=== PATIENT | male | born 1925 | race Caucasian/White ===

== ENCOUNTER 2016-06-09 15:33 | Emergency (ER) | payer OTHER ==
[~2016-06-09] VITALS: Ht 160 cm; Wt 56.7 kg
--- NOTE | 2016-06-09 16:53 | ED GI/GU/ABDOMINAL COMPLAINT ---
History of Present Illness General Chief Complaint: Abdominal Pain/Flank Pain Stated Complaint: ABD PAIN Source: patient, family, old records Exam Limitations: no limitations Vital Signs & Intake/Output Vital Signs & Intake/Output Vital Signs Date Time Temp Pulse Resp B/P Pulse O2 O2 Flow FiO2 Ox Delivery Rate 06/09 1803 68 16 134/64 96 Room Air 06/09 1723 97 Room Air 06/09 1544 97.4 95 18 147/75 97 Room Air Allergies Coded Allergies: No Known Allergies (06/09/16) Reconcile Medications Amlodipine Besylate (Norvasc) 10 MG TABLET 1 TAB PO DAILY BP (Reported) Aspirin (Ecotrin*) 81 MG TABLET.DR 1 TAB PO DAILY HEART/BLOOD (Reported) Atorvastatin Calcium 40 MG TABLET 1 TAB PO DAILY CHOLESTEROL (Reported) Lisinopril 2.5 MG TABLET 1 TAB PO DAILY BP (Reported) Triage Note: 89 Y/O MALE SENT BY DR COVINGTON FOR EVAL OF R FLANK PAIN X 1 WEEK; R/O OBSTRUCTION PER PT. PT STATES PAIN OCCASIONALLY RADIATES INTO THE ABDOMEN. REPORTS INTERMITTENT NAUSEA. DENIES VOMITING. DENIES URINARY SYMPTOMS. AFEBRILE. Triage Nurses Notes Reviewed? yes HPI: Patient is an 89-year-old male sent into the emergency department by his primary care doctor, Dr. Covington, for further evaluation of right-sided abdominal pain. Patient reports that the pain is a sharp pain is minimal at rest, worsens with movement. Pain is been severe at times. Patient reports the pain has gradually worsened over the past 1 week. Patient has not had a bowel movement for one week. Patient has been eating prunes and used 2 enemas without improvement. Patient was seen by his primary care doctor prior to arrival and sent to the emergency department to rule out obstruction. Patient reports he is passing flatus. Denies fevers, chills, nausea, vomiting. (MARYLU MEDEIROS,CHAMP) Past History Travel History Traveled to [place] past 21 day No Medical History Any Pertinent Medical History? see below for history Neurological: NONE EENT: NONE Cardiovascular: CAD, hypertension, hyperlipidemia Respiratory: NONE Gastrointestinal: NONE Hepatic: NONE Renal: NONE Musculoskeletal: NONE Psychiatric: NONE Endocrine: NONE Blood Disorders: NONE Cancer(s): NONE REPAIR MILLER/Reproductive: NONE Pneumonia Vaccine: 02/05/08 Surgical History Surgical History: CABG x 5, appendectomy Psychosocial History Who do you live with Spouse What is your primary language South African Tobacco Use: Never used Family History Hx Contributory? No (CHAMP MCKNIGHT) Review of Systems Review of Systems Constitutional: Denies: chills, fever. EENTM: Reports: no symptoms. Respiratory: Denies: cough, short of breath. Cardiovascular: Denies: chest pain. GI: Reports: see HPI. Genitourinary: Reports: no symptoms. Musculoskeletal: Reports: no symptoms. Skin: Reports: no symptoms. Neurological/Psychological: Reports: no symptoms. Hematologic/Endocrine: Reports: no symptoms. Immunologic/Allergic: Reports: no symptoms. (CHAMP MCKNIGHT) Physical Exam Physical Exam General Appearance: well developed/nourished, alert, awake Head: atraumatic, normal appearance Eyes: Bilateral: normal appearance, PERRL, EOMI. Ears, Nose, Throat, Mouth: hearing grossly normal, moist mucous membrane Neck: normal inspection, supple, full range of motion Respiratory: normal breath sounds, chest non-tender, no respiratory distress, lungs clear Cardiovascular: regular rate/rhythm, systolic murmur Gastrointestinal: normal bowel sounds, soft, right upper quadrant and right mid abdominal tenderness Back: normal inspection, normal range of motion Extremities: normal range of motion Neurologic/Psych: no motor/sensory deficits, awake, alert, oriented x 3, normal mood/affect Skin: intact, warm/dry Core Measures ACS in differential dx? No Severe Sepsis Present: No Septic Shock Present: No (CHAMP MCKNIGHT) Progress Differential Diagnosis: AAA, biliary colic, bowel obstruction, cholecystitis, diverticulitis, gastritis, hepatitis, hernia, ischemic bowel, inflamm bowel dis, pancreatitis, PUD/GERD, perforated viscous, pyelonephritis, SBO, ureterolithiasis, UTI/pyelo Plan of Care: Orders Procedure Date/time Status LACTIC ACID 06/09 2001 Active LACTIC ACID 06/09 1702 Complete TROPONIN LEVEL 06/09 1554 Complete LIPASE 06/09 1554 Complete COMPREHENSIVE METABOLIC PANEL 06/09 1554 Complete CBC WITHOUT DIFFERENTIAL 06/09 1554 Complete AMYLASE 06/09 1554 Complete EKG 06/09 1554 Active URINALYSIS 06/09 1546 Complete Laboratory Tests 06/09/16 1710: Lactic Acid 1.0 06/09/16 1710: Anion Gap 12, Estimated GFR > 60, BUN/Creatinine Ratio 20.0, Glucose 106 H, Calcium 9.3, Total Bilirubin 0.8, AST 19, ALT 32, Alkaline Phosphatase 121, Troponin I < 0.01, Total Protein 6.8, Albumin 4.2, Globulin 2.6, Albumin/ Globulin Ratio 1.6, Amylase 53, Lipase 96, CBC w Diff NO MAN DIFF REQ, RBC 5.28, MCV 90.4, MCH 30.4, RDW 13.3, MPV 7.7, Gran % 75.7 H, Lymphocytes % 15.5 L, Monocytes % 7.8, Eosinophils % 0.7, Basophils % 0.3, Absolute Granulocytes 7.6 H, Absolute Lymphocytes 1.6, Absolute Monocytes 0.8 H, Absolute Eosinophils 0.1 , Absolute Basophils 0, PUBS MCHC 33.6 06/09/16 1554: Urine Color YEL, Urine Clarity CLEAR, Urine pH 6.0, Ur Specific Lewis >= 1.030 , Urine Protein 100 H, Urine Ketones NEG, Urine Nitrite NEG, Urine Bilirubin NEG, Urine Urobilinogen 1.0, Ur Leukocyte Esterase NEG, Ur Microscopic SEDIMENT EXAMINED, Urine RBC FEW H, Urine WBC 1-3 H, Ur Epithelial Cells RARE, Hyaline Casts FEW H, Urine Mucus MOD H, Urine Hemoglobin TRACE-LYSED H, Urine Glucose NEG 06/09/2016 6:38:31 PM: Patient reevaluated multiple times. Results of CT scan, labs, ultrasound discussed with the patient and his son. No peritoneal signs on exam. Patient nontoxic appearing. Patient appears stable for discharge, will have patient take Colace and magnesium citrate and have him follow-up with his primary care doctor. Patient to return to the emergency department if worsening. Discussed with and seen by Dr. Ashford. (CHAMP MCKNIGHT) Diagnostic Imaging: Viewed by Me: CT Scan. Discussed w/RAD: CT Scan. Radiology Impression: PATIENT: RODRIGO SIEGEL PRESENT AGE : 89 PATIENT ACCOUNT NO: [id number] : [birth year] LOCATION: [facility] ORDERING PHYSICIAN: BARNEY ASHFORD DO SERVICE DATE: 06/09/162664 EXAM TYPE: CAT - CT ABD & PELVIS W/O IV CONTRAS EXAMINATION: CT ABDOMEN AND PELVIS WITHOUT CONTRAST CLINICAL INFORMATION: No bowel movement for 7 days. Concern for bowel obstruction. COMPARISON: None TECHNIQUE: Multidetector volumetric imaging was performed from the superior aspect of the liver through the pubic symphysis. Sagittal and coronal reformatted images were obtained on the technologist's workstation. DLP: 284.48 mGy-cm FINDINGS: LUNG BASES: Status post median sternotomy. Lungs are clear. No pleural effusion. There are vascular wall calcifications of the aorta. LIVER, GALLBLADDER, AND BILIARY TREE: 2.3 cm hepatic cyst dome right lobe of liver. Multiple small calcified gallstones layering dependently in the neck of the gallbladder. The extrahepatic CBD is mildly dilated to 8 mm. There is no calcified stone within the bile duct. PANCREAS: Unremarkable. SPLEEN: Unremarkable. ADRENAL GLANDS: Unremarkable. KIDNEYS AND URETERS: The kidneys are normal in size, shape, and attenuation. No hydronephrosis, hydroureter, or calculi are seen. No perinephric stranding. BLADDER: Unremarkable. GASTROINTESTINAL TRACT: Marked diverticulosis of the sigmoid colon. No diverticulitis. No bowel wall thickening or edema. Moderate volume of stool in the colon. No bowel obstruction. The appendix is not seen. There is no inflammation of the mesentery. The small bowel loops are normal. ABDOMINAL WALL: No significant hernia is appreciated. LYMPH NODES: Normal. VASCULAR: Atherosclerotic vascular wall calcifications of the aorta and iliac vessels and major branch vessels of aorta. No aneurysm of the aorta. PELVIC VISCERA: Prostate is prominent measuring 4 cm transverse. OSSEOUS STRUCTURES: Multilevel degenerative spondylosis of the spine with disc height narrowing, endplate spurs and facet joint arthrosis. IMPRESSION: 1. No acute abnormality in the CT scan abdomen and pelvis. No bowel obstruction. Diverticulosis of the colon. No acute change of the bowel. 2. Cholelithiasis with mild prominence of the extrahepatic CBD without stones in the duct. DICTATED BY: GROVER ULLOA MD DATE/TIME DICTATED:06/09/161645 CARDIO TECH:LUISA DATE/TIME TRANSCRIBED:06/09/161645 CONFIDENTIAL, DO NOT COPY WITHOUT APPROPRIATE AUTHORIZATION. <Electronically signed in Other Vendor System> SIGNED BY: GROVER ULLOA MD 06/09/16 5503, PATIENT: RODRIGO SIEGEL PRESENT AGE: 89 PATIENT ACCOUNT NO: [id number] : [birth year] LOCATION: [facility] ORDERING PHYSICIAN: CHAMP MEDEIROS SERVICE DATE: 06/09/16 EXAM TYPE: US - US-LIMITED ABDOMEN EXAMINATION: US ABDOMEN LIMITED CLINICAL INFORMATION: Right-sided abdominal pain and tenderness.. COMPARISON: 06/09/2016 TECHNIQUE: Real-time imaging of the right upper quadrant abdominal viscera. FINDINGS: PANCREAS: Poorly visualized secondary to bowel gas. LIVER: There is a 2.1 cm cyst in the right lobe of the liver. The liver demonstrates normal size, contour and echogenicity. No intrahepatic biliary duct dilatation. GALLBLADDER: The evaluation of the gallbladder is limited, with limited visualization. The gallstones seen on the prior CT are not visualized on this ultrasound. No evidence of gallbladder wall thickening. No pericholecystic fluid. COMMON BILE DUCT: Normal in caliber measuring 0.4 cm in diameter. RIGHT KIDNEY: Normal. No hydronephrosis. No renal calculi or focal parenchymal lesions. The kidney measures 8.4 cm in maximum dimension. FREE FLUID: None. IMPRESSION: Limited study, with limited visualization of the gallbladder. The gallstones seen on the recent prior CT are not visualized on this study. No evidence of wall thickening or adjacent inflammatory change. DICTATED BY: NAVEED CONTRERAS MD DATE/TIME DICTATED:06/09/161804 CARDIO TECH:LUISA DATE/TIME TRANSCRIBED:1804 CONFIDENTIAL, DO NOT COPY WITHOUT APPROPRIATE AUTHORIZATION. < Electronically signed in Other Vendor System> SIGNED BY: NAVEED CONTRERAS MD 06/09/161814 Initial ED EKG: sinus rhythm left bundle branch block Prior EKG: changed (MARYLU MEDEIROS,CHAMP) Departure Departure Time of Disposition: 1833 Disposition: HOME OR SELF CARE Condition: Stable Clinical Impression Primary Impression: Constipation Qualifiers: Constipation type: unspecified constipation type Qualified Code: K59.00 - Constipation, unspecified Secondary Impressions: Right sided abdominal pain Referrals: NADYA MERINO,RODRIGO Mcleod (PCP/Family) Additional Instructions: Take colace as directed. Take Magnesium Citrate, 1/2 bottle every 12 hours as needed for constipation, may use up to 3 days in a row. Do not take additional doses of magnesium citrate if you have more than 2 bowel movements in a 24 hour period. Follow up with your primary doctor next week for further evaluation. Return to the ER if fevers, vomiting or worsening of symptoms. Departure Forms: Customer Survey General Discharge Information (MARYLU MEDEIROS,CHAMP) PA/PRINT TRAFFIC MANAGER Co-Sign Statement Statement: ED Attending supervision documentation- [x] I saw and evaluated the patient. I have also reviewed all the pertinent lab results and diagnostic results. I agree with the findings and the plan of care as documented in the PA's/PRINT TRAFFIC MANAGER's documentation. [] I have reviewed the ED Record and agree with the PA's/PRINT TRAFFIC MANAGER's documentation. [] Additions or exceptions (if any) to the PAs/PRINT TRAFFIC MANAGER's note and plan are summarized below: [] (BARNEY ASHFORD DO)
--- NOTE | 2016-06-09 17:11 | CT SCAN REPORT ---
EXAMINATION: CT ABDOMEN AND PELVIS WITHOUT CONTRAST CLINICAL INFORMATION: No bowel movement for 7 days. Concern for bowel obstruction. COMPARISON: None TECHNIQUE: Multidetector volumetric imaging was performed from the superior aspect of the liver through the pubic symphysis. Sagittal and coronal reformatted images were obtained on the technologist's workstation. DLP: 284.48 mGy-cm FINDINGS: LUNG BASES: Status post median sternotomy. Lungs are clear. No pleural effusion. There are vascular wall calcifications of the aorta. LIVER, GALLBLADDER, AND BILIARY TREE: 2.3 cm hepatic cyst dome right lobe of liver. Multiple small calcified gallstones layering dependently in the neck of the gallbladder. The extrahepatic CBD is mildly dilated to 8 mm. There is no calcified stone within the bile duct. PANCREAS: Unremarkable. SPLEEN: Unremarkable. ADRENAL GLANDS: Unremarkable. KIDNEYS AND URETERS: The kidneys are normal in size, shape, and attenuation. No hydronephrosis, hydroureter, or calculi are seen. No perinephric stranding. BLADDER: Unremarkable. GASTROINTESTINAL TRACT: Marked diverticulosis of the sigmoid colon. No diverticulitis. No bowel wall thickening or edema. Moderate volume of stool in the colon. No bowel obstruction. The appendix is not seen. There is no inflammation of the mesentery. The small bowel loops are normal. ABDOMINAL WALL: No significant hernia is appreciated. LYMPH NODES: Normal. VASCULAR: Atherosclerotic vascular wall calcifications of the aorta and iliac vessels and major branch vessels of aorta. No aneurysm of the aorta. PELVIC VISCERA: Prostate is prominent measuring 4 cm transverse. OSSEOUS STRUCTURES: Multilevel degenerative spondylosis of the spine with disc height narrowing, endplate spurs and facet joint arthrosis. IMPRESSION: 1. No acute abnormality in the CT scan abdomen and pelvis. No bowel obstruction. Diverticulosis of the colon. No acute change of the bowel. 2. Cholelithiasis with mild prominence of the extrahepatic CBD without stones in the duct.
[2016-06-09] MEDS ORDERED: LISINOPRIL2.5 M1 PO (17:21)
[2016-06-09] MEDS ORDERED: ASPIRIN EC81 M1 PO (17:21)
[2016-06-09 17:26] LABS: ABSOLUTE BASOPHIL COUNT 0 /CUMM (0.0-0.2); ABSOLUTE EOSINOPHIL COUNT 0.1 /CUMM (0.0-0.7); ABSOLUTE GRANULOCYTE CT 7.6 /CUMM (1.4-6.5); ABSOLUTE LYMPH COUNT 1.6 /CUMM (1.2-3.4); ABSOLUTE MONOCYTE COUNT 0.8 /CUMM (0.10-0.60); BASOPHIL % 0.3 % (0.0-2.0); EOSINOPHIL % 0.7 % (0-5); GRANULOCYTE % 75.7 % (42.2-75.2); HEMATOCRIT 47.8 % (42-52); MEAN CORPUSCULAR HGB 30.4 PG (27.0-31.0); MEAN CORPUSCULAR HGB CONC 33.6 G/DL (33.0-37.0); MEAN CORPUSCULAR VOLUME 90.4 FL (80.0-94.0); MEAN PLATELET VOLUME 7.7 FL (7.4-10.4); PLATELET COUNT 175 /CUMM (130-400); RBC DISTRIBUTION WIDTH 13.3 % (11.5-14.5); RED BLOOD CELL CT 5.28 /CUMM (4.70-6.10); WHITE BLOOD CELL COUNT 10.1 /CUMM (4.8-10.8)
[2016-06-09] MEDS ORDERED: NORVASC10 M1 PO (17:41)
[2016-06-09] MEDS ORDERED: ATORVASTATIN CA40 M1 PO (17:41)
[2016-06-09 18:03] VITALS: BP 134/64
--- NOTE | 2016-06-09 18:15 | ULTRASOUND REPORT ---
EXAMINATION: US ABDOMEN LIMITED CLINICAL INFORMATION: Right-sided abdominal pain and tenderness.. COMPARISON: 06/09/2016 TECHNIQUE: Real-time imaging of the right upper quadrant abdominal viscera. FINDINGS: PANCREAS: Poorly visualized secondary to bowel gas. LIVER: There is a 2.1 cm cyst in the right lobe of the liver. The liver demonstrates normal size, contour and echogenicity. No intrahepatic biliary duct dilatation. GALLBLADDER: The evaluation of the gallbladder is limited, with limited visualization. The gallstones seen on the prior CT are not visualized on this ultrasound. No evidence of gallbladder wall thickening. No pericholecystic fluid. COMMON BILE DUCT: Normal in caliber measuring 0.4 cm in diameter. RIGHT KIDNEY: Normal. No hydronephrosis. No renal calculi or focal parenchymal lesions. The kidney measures 8.4 cm in maximum dimension. FREE FLUID: None. IMPRESSION: Limited study, with limited visualization of the gallbladder. The gallstones seen on the recent prior CT are not visualized on this study. No evidence of wall thickening or adjacent inflammatory change.
== END 2016-06-09 18:45 ==
LOC: ERH 15:33
PROVIDERS: Emergency Medicine
DX: K59.00 Constipation, unspecified (principal)
CPT/HCPCS: 74176; 81001; 93005; 93010

== ENCOUNTER 2017-07-22 20:02 | Inpatient (IN) | payer OTHER ==
[~2017-07-22] VITALS: Ht 160 cm; Wt 67.8 kg
[~2017-07-22 20:02] MED LIST: ASPIRIN EC81 M1 PO; ATORVASTATIN CA40 M1 PO; LISINOPRIL2.5 M1 PO; NORVASC10 M1 PO
--- NOTE | 2017-07-22 20:10 | ED HEAD/FACIAL INJ COMPLAINT ---
History of Present Illness General Chief Complaint: General Adult Stated Complaint: FALL, AMS Source: patient, family, old records Exam Limitations: intoxication Vital Signs & Intake/Output Vital Signs & Intake/Output Vital Signs Date Time Temp Pulse Resp B/P B/P Pulse O2 O2 Flow FiO2 Mean Ox Delivery Rate 07/22 2021 98 Room Air 07/22 2009 97.5 82 18 185/82 97 Room Air Allergies Coded Allergies: No Known Allergies (06/09/16) Reconcile Medications Amlodipine Besylate (Norvasc) 10 MG TABLET 1 TAB PO DAILY BP (Reported) Aspirin (Ecotrin*) 81 MG TABLET.DR 1 TAB PO DAILY HEART/BLOOD (Reported) Atorvastatin Calcium 40 MG TABLET 1 TAB PO DAILY CHOLESTEROL (Reported) Lisinopril 2.5 MG TABLET 1 TAB PO DAILY BP (Reported) Triage Nurses Notes Reviewed? yes HPI: Patient was drinking tonight and had a witnessed fall at his house. Per his son the patient tripped and fell forward landing on his face. There is no loss of consciousness. Patient has no current complaints. He denies any headache. There is no nausea or vomiting. No blurry vision. Patient denies any chest pain or shortness of breath. He denies any abdominal pain. Past History Travel History Traveled to [place] past 21 day No Medical History Any Pertinent Medical History? see below for history Neurological: NONE EENT: NONE Cardiovascular: CAD, hypertension, hyperlipidemia Respiratory: NONE Gastrointestinal: NONE Hepatic: NONE Renal: NONE Musculoskeletal: NONE Psychiatric: NONE Endocrine: NONE Blood Disorders: NONE Cancer(s): NONE WEB COORDINATOR/Reproductive: NONE Pneumonia Vaccine: 02/05/08 Surgical History Surgical History: CABG x 5, appendectomy Psychosocial History Who do you live with Spouse What is your primary language Kazakh Tobacco Use: Quit >30 days ago ETOH Use: occasional use (TONIGHT) Illicit Drug Use: denies illicit drug use Family History Hx Contributory? No Review of Systems Review of Systems Constitutional: Reports: no symptoms. EENTM: Reports: no symptoms. Respiratory: Reports: no symptoms. Cardiovascular: Reports: no symptoms. GI: Reports: no symptoms. Genitourinary: Reports: no symptoms. Musculoskeletal: Reports: no symptoms. Skin: Reports: no symptoms. Neurological/Psychological: Reports: no symptoms. Hematologic/Endocrine: Reports: no symptoms. Immunologic/Allergic: Reports: no symptoms. All Other Systems: Reviewed and Negative Physical Exam Physical Exam General Appearance: well developed/nourished, mild distress Head: contusions, ecchymosis, lacerations (SMALL, <1/2 CM, SUPERFICIAL), swelling Eyes: Bilateral: PERRL, EOMI. Ears, Nose, Throat: normal pharynx, normal ENT inspection, hearing grossly normal, DRIED BLOOD IN BOTH NARES Neck: normal inspection, supple Respiratory: normal breath sounds Cardiovascular: regular rate/rhythm Gastrointestinal: soft, non-tender Back: normal inspection, normal range of motion Extremities: normal inspection, normal capillary refill, normal range of motion, no edema, pedal edema, FULL ROM BOTH HIPS, NO PAIN Psychiatric: awake, alert, oriented x 3 Cranial Nerves: normal hearing, normal speech, PERRL Motor/Sensory: no motor/sensory deficits Skin: intact, normal color, warm/dry Lymphatic: no anterior cervical anju Progress Differential Diagnosis: c-spine injury, facial fracture, ICH, skull fracture Plan of Care: Orders Procedure Date/time Status Heart Healthy Diet 07/[address] in observation 07/22 2205 Active ED Holding Orders 07/22 2205 Active Vital Signs 07/22 2205 Active Code Status 07/22 2205 Active Telemetry/Data Officer 07/22 2128 Active TROPONIN LEVEL 07/22 2008 Complete ETHANOL 07/22 2008 Complete COMPREHENSIVE METABOLIC PANEL 07/22 2008 Complete CBC WITHOUT DIFFERENTIAL 07/22 2008 Complete EKG 07/22 2008 Active Current Medications Sig/Dmitry Start time Last Medication Dose Stop Time Status Admin Tetanus/Diphtheria 0.5 ML ONCE ONE 07/22 2214 UNVr 07/22 Toxoids Adsorbed 07/23 2215 2224 ([facility]) Laboratory Tests 07/22/172042: Anion Gap 13, Estimated GFR > 60, BUN/Creatinine Ratio 33.3 H, Glucose 118 H, Calcium 9.5, Total Bilirubin 0.6, AST 26, ALT 24, Alkaline Phosphatase 78, Troponin I 0.02, Total Protein 6.6, Albumin 4.0, Globulin 2.6, Albumin/Globulin Ratio 1.5, CBC w Diff NO MAN DIFF REQ, RBC 4.96, MCV 91.1, MCH 30.5, MCHC 33.4, RDW 13.4, MPV 7.7, Gran % 64.4, Lymphocytes % 25.2, Monocytes % 7.5, Eosinophils % 2.4, Basophils % 0.5, Absolute Granulocytes 5.2, Absolute Lymphocytes 2.0, Absolute Monocytes 0.6, Absolute Eosinophils 0.2, Absolute Basophils 0, Serum Alcohol 44.0 Diagnostic Imaging: Viewed by Me: Radiology Read, CT Scan. Discussed w/RAD: Radiology Read, CT Scan. Radiology Impression: PATIENT: RODRIGO SIEGEL PRESENT AGE : 89 PATIENT ACCOUNT NO: [id number] : [birth year] LOCATION: [facility] ORDERING PHYSICIAN: Arslan Matthews MD SERVICE DATE: 07/22/17 EXAM TYPE: CAT - CT CERV SPINE WO IV CONTRAST; CT HEAD WO IV CONTRAST; CT MAXILLOFACIAL W/O CON Indication: Fall, head injury EXAMINATION: CT brain, CT cervical spine, CT facial bones. CT brain Axial imaging. Noncontrast. No midline shift. There is no mass effect. There is no hemorrhage. Basilar cisterns appear patent. Posterior fossa risk grossly within normal limits. There is no extra-axial collection. Atrophy and scattered white matter ischemic changes noted. No extra-axial collection. No evidence for fracture on the bone windows. Cervical spine Axial imaging with coronal and sagittal reformatted images. FINDINGS: Degenerative changes. No acute fracture or dislocation. There is grade 1 bordering grade 2 anterolisthesis of C7 on T1. This is likely degenerative in nature. Facial bones. Axial imaging with coronal and sagittal reformatted images. FINDINGS: No acute fracture. IMPRESSION: No acute finding here. In the brain atrophy and age- related white matter ischemic change. No acute mass effect or midline shift or hemorrhage. Degenerative change in the cervical spine with anterolisthesis as described. No acute fracture or dislocation. No acute fracture in the facial bones. DICTATED BY: Mann Parekh MD DATE/TIME DICTATED:07/22/172038 TERMINAL COMPUTER OPERATOR:LUISA DATE/TIME TRANSCRIBED:07/22/172038 CONFIDENTIAL, DO NOT COPY WITHOUT APPROPRIATE AUTHORIZATION. <Electronically signed in Other Vendor System> SIGNED BY: Mann Parekh MD 07/22/172045 Initial ED EKG: NSR, LBBB, nonspecific ST T wave chg Prior EKG: unchanged Comments: Patient is now complaining of right arm and right leg weakness. Patient states that this occurred when he fell. Patient is unsure if it started before he fell after he fell. On exam he states that he cannot lift his arm past a certain point. Patient states just feels too weak to lift the past that point. While sitting there and talking while keeping his arm elevated patient is noted to be able to lift it higher than indicated. Unable to ascertain a pronator drift as the patient states he cannot turn his right arm over. Patient denies any pain to his arm or his leg or his hip. Sensation is intact. His reflexes are 2+. He can keep his arm elevated for a prolonged period of time however he states that it is too weak to lift it any higher. Upon lifting his right leg he needs to prop his left leg with a bend knee and his foot all the way on the bed to even lift his right leg off the table and then again he says that he cannot lift more than 6 inches off the table. He is able to keep it there for approximately 30 seconds before it falls again. He has downgoing Babinskis bilaterally. Unable to determine finger-nose or heel to latif as again he states that he cannot get his right arm or his right leg high enough up to test those. D/W DR. KEE, SYMPTOMS DO NOT FIT A SPECIFIC LOCATION IN THE BRAIN. HE RECOMMENDS OCS FOR MRI. IF IT SHOWS SOMETHING, THEN CONSULT NEUROLOGY. IF NOT, PT CONSULT. PT SWALLOWED WATER WITHOUT DIFFICULTY IN THE ER. Departure Departure Disposition: STILL A PATIENT Condition: Stable Clinical Impression Primary Impression: Arm weakness Secondary Impressions: Leg weakness Referrals: Manjit MERINO,Rodrigo Mcleod (PCP/Family) Departure Forms: Customer Survey General Discharge Information Observation Note Spoke With: Emmett MERINO,Jennwerner Physician Advisor Notified: MARY MERINO,ARSLAN Hernandez Place Patient In: Non-ED OBS Care Area Rationale for Observation: My rational for observation is as follows [TELE MONITORING, PT CONSULT, MRI, NEURO CONSULT IF MRI IS POSITIVE.].
--- NOTE | 2017-07-22 20:46 | CT SCAN REPORT ---
Indication: Fall, head injury EXAMINATION: CT brain, CT cervical spine, CT facial bones. CT brain Axial imaging. Noncontrast. No midline shift. There is no mass effect. There is no hemorrhage. Basilar cisterns appear patent. Posterior fossa risk grossly within normal limits. There is no extra-axial collection. Atrophy and scattered white matter ischemic changes noted. No extra-axial collection. No evidence for fracture on the bone windows. Cervical spine Axial imaging with coronal and sagittal reformatted images. FINDINGS: Degenerative changes. No acute fracture or dislocation. There is grade 1 bordering grade 2 anterolisthesis of C7 on T1. This is likely degenerative in nature. Facial bones. Axial imaging with coronal and sagittal reformatted images. FINDINGS: No acute fracture. IMPRESSION: No acute finding here. In the brain atrophy and age-related white matter ischemic change. No acute mass effect or midline shift or hemorrhage. Degenerative change in the cervical spine with anterolisthesis as described. No acute fracture or dislocation. No acute fracture in the facial bones.
[2017-07-22 20:53] LABS: ABSOLUTE BASOPHIL COUNT 0 /CUMM (0.0-0.2); ABSOLUTE EOSINOPHIL COUNT 0.2 /CUMM (0.0-0.7); ABSOLUTE GRANULOCYTE CT 5.2 /CUMM (1.4-6.5); ABSOLUTE MONOCYTE COUNT 0.6 /CUMM (0.10-0.60); BASOPHIL % 0.5 % (0.0-2.0); EOSINOPHIL % 2.4 % (0-5); GRANULOCYTE % 64.4 % (42.2-75.2); HEMATOCRIT 45.2 % (42-52); MEAN CORPUSCULAR HGB 30.5 PG (27.0-31.0); MEAN CORPUSCULAR HGB CONC 33.4 G/DL (33.0-37.0); MEAN CORPUSCULAR VOLUME 91.1 FL (80.0-94.0); MEAN PLATELET VOLUME 7.7 FL (7.4-10.4); PLATELET COUNT 204 /CUMM (130-400); RBC DISTRIBUTION WIDTH 13.4 % (11.5-14.5); RED BLOOD CELL CT 4.96 /CUMM (4.70-6.10)
--- NOTE | 2017-07-22 21:46 | RADIOLOGY REPORT ---
EXAMINATION: XR PORTABLE CHEST CLINICAL INFORMATION: Chest pain COMPARISON: None TECHNIQUE: Portable supine AP view of the chest was obtained. FINDINGS: The patient is status post median sternotomy. The sternal wires appear intact. A few surgical clips are noted at the level of the gastric esophageal junction. The lung volumes are low somewhat limiting assessment. The cardiac size appears within normal limits. There is bibasilar subsegmental atelectasis. The lungs are otherwise clear. No definite consolidation or effusion. The visualized osseous structures appear intact. IMPRESSION: Limited evaluation. Bibasilar atelectasis. No convincing acute cardiopulmonary process.
[2017-07-22] MEDS ORDERED: VITAMIN B-121000 MC3 PO (23:51)
[2017-07-22] MEDS ORDERED: GARLIC OIL1000 M1 PO (23:52)
[2017-07-22] MEDS ORDERED: FISH OIL 1,2001 EACH PO (23:53)
[2017-07-23] VITALS (7 sets, daily range): BP systolic 110–140; BP diastolic 60–88
--- NOTE | 2017-07-23 00:09 | History & Physical ---
Debbie MERINO,[facility] 07/23/17 0008: General Information and HPI MD Statement: I have seen and personally examined RODRIGO CARTER and documented this H&P. The patient is a 89 year old M who presented with a patient stated chief complaint of [right-sided weakness and numbness]. Source of Information: patient, family Exam Limitations: no limitations History of Present Illness: Mr. Carter is an 89-year-old gentleman with past medical history significant for hypertension, hyperlipidemia, osteoarthritis, coronary artery disease status post CABG 5 and stent placement and CVA(left thalamic stroke in 2008) presents with right sided weakness after he had a fall around 7 PM this evening. According to the patient, he was in his usual state of health 2 weeks ago when he started feeling imbalance/unsteady on his feet, had a fall 1 week ago and went down on his face, did not seek any medical attention at that time. Today around 7 PM, he got up from the chair when his legs gave away and he fell on the floor on his right side and hit his head with the wall. He called his who was in the kitchen, who called the son and he was brought in to the hospital. Denies any lightheadedness/dizziness,loss of confusion, chest pain, palpitations , shortness of breath, headache, slurring of speech, facial droop, confusion before or after the fall, or visual changes. Also denies any recent illness, diarrhea, recent change in medications, or decreased by mouth intake. Patient's son states that he has osteoarthritis in both his knees , right is worse than the left, and he is not able to bend his knee completely at baseline but it's worse after the fall. Allergies/Medications Allergies: Coded Allergies: No Known Allergies (06/09/16) Home Med list Amlodipine Besylate (Norvasc) 10 MG TABLET 1 TAB PO DAILY BP (Reported) Aspirin (Ecotrin*) 81 MG TABLET.DR 1 TAB PO DAILY HEART/BLOOD (Reported) Atorvastatin Calcium 40 MG TABLET 1 TAB PO DAILY CHOLESTEROL (Reported) Cyanocobalamin (Vitamin B-12) 1,000 MCG TABLET 1 TAB PO DAILY VITAMIN SUPPORT (Reported) Fish Oil/Dha/Epa (Fish Oil 1,200 MG Fish Oil) 1,200 MG-144 MG-216 MG CAPSULE 1 SGL PO DAILY HEART HEALTH (Reported) Garlic (Garlic Oil) 1,000 MG CAPSULE 1 CAP PO DAILY HEART HEALTH (Reported) Lisinopril 2.5 MG TABLET 1 TAB PO DAILY BP (Reported) Past History Travel History Traveled to [place] past 21 day No Medical History Neurological: NONE EENT: NONE Cardiovascular: CAD, hypertension, hyperlipidemia Respiratory: NONE Gastrointestinal: constipation Hepatic: NONE Renal: nephrolithiasis Musculoskeletal: osteoarthritis Psychiatric: NONE Endocrine: NONE Blood Disorders: NONE Cancer(s): NONE ALIGNMENT TECHNICIAN/Reproductive: NONE Tetanus Vaccine: 07/22/17 Surgical History Surgical History: CABG x 5, appendectomy Past Family/Social History Psychosocial History Where do you live? Home Who Do You Live With? spouse Smoking Status: Former Smoker ETOH Use: occasional use (TONIGHT) Illicit Drug Use: denies illicit drug use Functional Ability Ambulation: cane, walker Review of Systems Review of Systems Constitutional: Reports: no symptoms. EENTM: Reports: no symptoms. Cardiovascular: Reports: no symptoms. Respiratory: Reports: no symptoms. GI: Reports: constipation. Genitourinary: Reports: no symptoms. Musculoskeletal: Reports: joint pain, muscle pain. Skin: Reports: no symptoms. Neurological/Psychological: Reports: numbness. Hematologic/Endocrine: Reports: no symptoms. Immunologic/Allergic: Reports: no symptoms. All Other Systems: Reviewed and Negative Exam & Diagnostic Data Last 24 Hrs of Vital Signs/I&O Vital Signs Date Time Temp Pulse Resp B/P B/P Pulse O2 O2 Flow FiO2 Mean Ox Delivery Rate 07/22 2344 97.9 74 18 146/72 97 Room Air 07/22 2242 97.9 76 18 132/78 97 Room Air 07/22 2021 98 Room Air 07/22 2009 97.5 82 18 185/82 97 Room Air Intake & Output 07/23 0800 07/23 0000 07/22 1600 Intake Total 0 Output Total Balance 0 Intake, Oral 0 Patient 120 lb Weight Weight Reported by Patient Measurement Method Physical Exam General Appearance Alert, Oriented X3, Cooperative, No Acute Distress HEENT PERRLA, EOMI, Mucous Membr. moist/pink, Lacerations on head and Nose Neck Supple, No JVD Cardiovascular Regular Rate, Normal S1, Normal S2 Lungs Normal Air Movement Abdomen Normal Bowel Sounds, Soft, No Tenderness Neurological Normal Speech, Normal Tone, Cranial Nerves 3-12 NL, Reflexes 2+, 3/ 5 in RUE and RLE, 4-5/5 on the left side Last 24 Hrs of Labs/Archie: Laboratory Tests 07/22/172042: Anion Gap 13, Estimated GFR > 60, BUN/Creatinine Ratio 33.3 H, Glucose 118 H, Hemoglobin A1c Pending, Calcium 9.5, Total Bilirubin 0.6, AST 26, ALT 24, Alkaline Phosphatase 78, Troponin I 0.02, Total Protein 6.6, Albumin 4.0, Globulin 2.6, Albumin/Globulin Ratio 1.5, Triglycerides Pending, Cholesterol Pending, LDL Cholesterol, Calc Pending, HDL Cholesterol Pending, Cholesterol/HDL Ratio Pending, Vitamin B12 Pending, TSH Pending, Free T4 Pending, CBC w Diff NO MAN DIFF REQ, RBC 4.96, MCV 91.1, MCH 30.5, MCHC 33.4, RDW 13.4, MPV 7.7, Gran % 64.4, Lymphocytes % 25.2, Monocytes % 7.5, Eosinophils % 2.4, Basophils % 0.5, Absolute Granulocytes 5.2, Absolute Lymphocytes 2.0, Absolute Monocytes 0.6, Absolute Eosinophils 0.2, Absolute Basophils 0, Serum Alcohol 44.0 Diagnostic Data EKG Results Normal sinus Rhythm with left bundle-branch block Heart rate 75 CXR Results IMPRESSION: Limited evaluation. Bibasilar atelectasis. No convincing acute cardiopulmonary process. Other Results CT CERV SPINE WO IV CONTRAST; CT HEAD WO IV CONTRAST; CT MAXILLOFACIAL W/O CON IMPRESSION: No acute finding here. In the brain atrophy and age-related white matter ischemic change. No acute mass effect or midline shift or hemorrhage. Degenerative change in the cervical spine with anterolisthesis as described. No acute fracture or dislocation. No acute fracture in the facial bones. Assessment/Plan Assessment: Mr. Carter is an 89-year-old gentleman with past medical history significant for hypertension, hyperlipidemia, osteoarthritis, coronary artery disease status post CABG 5 and stent placement and CVA(left thalamic stroke in 2008) presents with right weakness after he had a fall around 7 PM this evening. Problem List 1. Fall 2. Right shoulder, elbow and hip pain 3. Rule out CVA; patient's right-sided weakness likely secondary to fall; but given history of stroke will obtain MRI of the head to rule out CVA. 4. History of hypertension, hyperlipidemia and coronary artery disease 5. Alcohol use; Patient takes 1 shot of Vodka daily - We'll observe the patient on telemetry floor for 24-48 hours. - Neuro checks every 4 hours. - Hold antihypertensives for permissive hypertension. - Continue aspirin and atorvastatin. - MRI of the brain - Carotid ultrasound - Neurology consult - Troponins and EKG 3 to rule out ACS with - Will obtain echocardiogram - Check orthostatic vitals - Check TSH, free T4, A1c and lipid panel. - Patient passed bedside swallow evaluation, started on a regular diet. - PT/OT evaluation - Will obtain x-ray of the right shoulder, elbow and hip to rule out any fractures. - Pain managment - Will start the patient on CIWA protocol given recent alcohol use. DVT Prophylaxis; subcutaneous Lovenox Patient is DNR/DNI. As Ranked By This Provider Problem List: 1. Leg weakness 2. Arm weakness 3. Constipation Core Measures/Misc (01/21) Acute Coronary Syndrome ACS Diagnosis: No Congestive Heart Failure Congestive Heart Failure Diagnosis No Cerebrovascular Accident CVA/TIA Diagnosis: No VTE (View Protocol) VTE Risk Factors Age>40 No Mechanical VTE Prophylaxis d/t N/A MechProphylax Ordered No VTE Pharm Prophylaxis d/t NA PharmProphylax ordered Sepsis (View protocol) Sepsis Present: No aJmie Reddy 07/23/17 0049: Resident Review Statement Resident Statement: examined this patient, discussed with director internal communications, agreed with director internal communications, discussed with family, reviewed EMR data (avail), discussed with nursing , discussed with case mgmt, reviewed images, amended to note Other Findings: This is a 89-year-old male with past medical history significant for hypertension, hyperlipidemia, coronary artery disease status post CABG in 1989, angioplasty, stent placement 2012, remote history of left thalmic stroke, chronic constipation presented to the emergency room after an episode of witnessed fall around 7 PM. Patient states that he had an episode of witnessed fall at around 7 PM. According to the patient, his legs gave up from weakness and he fell forward landing on right side of the body, hitting face. Denied any loss of consciousness. Denied any prior dizziness or lightheadedness. No bladder or bowel incontinence. No seizures. No postictal confusion. He was able to remember the whole event. His was called and he was brought in by ambulance for further evaluation. He reports being weak for the last 2 weeks, 51 week back from dizzy and lightheadedness. Also reports history of fall one month ago. Denies any fever, chills, productive cough, short of breath, chest pain, palpitations, nausea or vomiting abdomen pain. However he reports urine frequency, constipation. No issues with prostate. Patient reports right shoulder pain, right elbow pain, right hip pain status post fall. Denied any sensory changes, numbness, tingling sensations, gait abnormalities, vision changes, speech abnormality. However daughter reports that he has some difficulty with speech for the last 6 months. He has remote history of stroke in 2009, no residual focal deficits from prior stroke.He has history of remote smoking, quit 60 years back. Denies illicit drug abuse. Drinks 1 shot of vodka daily last drink was this afternoon Vitals afebrile, heart rate 82, respiratory rate 18, blood pressure 185/82, saturating at 97 on room air. General Appearance: well developed/nourished Head: contusions, ecchymosis, superficial lacerations on haed PERRL, EOMI. DRIED BLOOD IN BOTH NARES Neck: normal inspection, supple, no lad Respiratory: normal breath sounds Cardiovascular: regular rate/rhythm Gastrointestinal: soft, non-tender Back: normal inspection, normal range of motion Extremities: normal inspection, normal capillary refill, normal range of motion, no edema, pedal edema, FULL ROM BOTH HIPS, NO PAIN awake, alert, oriented x 3 Cranial Nerves: 3-12 intact Motor/Sensory: 4/5 left side, 3/5 right side, no sensory deficits.reflexes +2. cerbellar test right side abnormal because of right shoulder pain Labs CBC, CMP within normal limits LFT normal troponin negative EKG showed sinus rhythm, rate 75, left bundle branch block Head CT, cervical spine CT, facial CT-no acute fracture, no acute mass effect or midline shift or hemorrhage. Chest x-ray no acute cardiopulmonary findings ------- 1. Right-sided weakness/ruling out stroke Patient presented with right arm and right leg weakness after witnessed fall around this evening. However according to the family he has similar symptoms for few weeks. Given his remote history of left thalamic stroke will place him under observation in the telemetry floor and rule out stroke. -Placed under observation in the telemetry floor -Continuous telemetry monitoring -Monitor vitals every shift -Maintain oxygen saturation above 90 -Fall precautions -NIH stroke scale every 4 hours -Patient passed bedside swallow evaluation, continue regular diet -PT/OT evaluation -Echocardiogram to look for any valvular abnormality, while motion abnormalities -No history of flutter or fibrillation in the past -We will get carotid Doppler ultrasound to look for any carotid artery stenosis -MRI brain without contrast to rule out stroke, CT head was negative -Neuro consult in a.m. -Will follow HbA1c, lipid panel. -Continue baby aspirin 81 daily. Patient was given 325 mg in the ER -Continue Lipitor 40 mg daily. Patient not taking Lipitor recently. -Serial troponin and EKG -Follow-up neuro recommendations 2. Status post witnessed fall Patient presented after witnessed fall. He reports right shoulder pain, elbow pain, hip pain. Also reports history of multiple falls recently. He was dizzy and lightheaded one week back leading to fall. He follows up with PCP closely. Given his frequent falls will do basic workup. Maxillofacial CT and cervical CT were done, no acute fractures were found. -Follow-up x-ray right hip, right shoulder and right elbow -Get orthostatic vitals -Telemetry monitoring -Mild to moderate pain management -Follow-up B12, vitamin D, thyroid function tests 3. Monitor for alcohol detox Patient usually drinks 1 shot of vodka daily. Last drink was around this afternoon. No prior history of hospitalizations for detox. -However will monitor him for any occult withdrawal symptoms -[facility] protocol 4. Hypertension continue home medication lisinopril 2.5, amlodipine 10 mg 5. Coronary artery disease status post CABG 25 years ago, stent placement 5 years back. 6. History of constipation Following up with Dr. Larson. He has coming up appointment next Sunday DNR/DNI Regular diet DVT prophylaxis subcutaneous Lovenox Emmett MERINO, [facility] 07/23/17 0126: Attending MD Review Statement Attending Statement Attending MD Statement: examined this patient, discuss w/resident/PA/IRISH MOSS BLEACHER, agreed w/resident/PA/IRISH MOSS BLEACHER, discussed with family, reviewed images, amended to note Attending Assessment/Plan: 89 yo M with h/o HTN, CAD s/p CABG (1989) and recent stent placement, arthritis, previous left thalamic stroke with no residual deficit, is brought in by family for evaluation after a witnessed fall at home and with right sided weakness/ numbness. He c/o inability to lift his right arm and right hip, he denies pain, but feels numb. Patient lives with his , and at baseline uses a cane. Today around 7 pm, he felt very weak, his legs gave away and he fell forward landing on his right side and hitting his face/head. He called out to his , who then called their son. Patient denies lightheadedness, headache, vision changes or LOC. No facial droop or slurring of speech noted. According to daughter, patient had a fall 1 week ago, and they have noted that he has been unsteady on his feet recently. Son states patient has been having difficulty with finding words, ongoing for the past 6 months. Patient drinks 1 shot of alcohol (vodka equivalent) almost every night, denies DT's or withdrawal. He reports urinary frequency and has not been evaluated for BPH. Vitals stable. Exam: AAO, hard of hearing, skin abrasions noted to the bridge of nose, above left eye and to the superior aspect of the head with minimal bleeding. Neuro exam: speech is clear, cranial nerves intact, power 5/5 left side, 3/5 on the right upper and lower extremity, active ROM is limited able to lift arm up to 90 degrees but not beyond, uses left hand to bring it higher. Unable to pronate the right hand, difficult to assess pronator drift. Right lower extremity similarly 2-3/5 power, reflexes 2+, sensation intact, plantars downgoing. Cerebellar able to perform on left side, on the right he attempts with difficulty. Passed bedside swallow eval. Labs are unremarkable except for glucose of 118. Troponin neg. Alcohol level 44. Head/ cervical/ maxillofacial CT: age related changed, no acute fracture or hemorrhage. CXR: bibasilar atelectasis. EKG: sinus rhythm, LBBB (old). Assessment and plan: 1. Mechanical fall 2. Right arm and leg numbness/ weakness rule out stroke vs injury from impact of the fall 3. Unsteady gait 4. History of left thalamic stroke 5. History of CAD s/p CABG and stent 6. Alcohol use daily - 23 hour observation on Telemetry - Neurochecks Q4 - check orthostats - Fall precautions - X ray right shoulder/ elbow and right hip - PT/OT eval in AM - MRI brain in AM - Carotid dopplers - Echocardiogram - Neuro consult - Aspirin and statin for now - Repeat EKG and troponin in AM - Pain control with Tylenol or tramadol - Avoid opiates in this elderly male - Monitor CIWA, no need for ativan unless withdrawing - Add daily thiamine, folic acid and MVI - Check lipid panel, TSH, HbA1c, vit D and B12 levels - Check urinalysis to rule out UTI DVT ppx Lovenox. DNR/I. Observation Initial Note - I have personally examined MICHELLERODRIGO on 07/23/17 at 0126. The disposition of RODRIGO CARTER is uncertain at this time and before a determination can be made, he requires a period of observation for the following reasons [Fall, rule out stroke]
--- NOTE | 2017-07-23 01:08 | RADIOLOGY REPORT ---
EXAMINATION: XR SHOULDER, RIGHT CLINICAL INFORMATION: Right shoulder pain. COMPARISON: Chest x-ray May 14, 2009 TECHNIQUE: Three views of the right shoulder. FINDINGS: No acute abnormality. There is no fracture or dislocation. There are stippled calcifications at the superior margin of the distal right clavicle adjacent to the acromioclavicular joint. These are chronic unchanged since chest x-ray May 26, 2017. Minimal spurring of the humeral head and the glenoid inferiorly of mild degenerative change of the glenohumeral joint. IMPRESSION: No acute abnormality of the shoulder.
--- NOTE | 2017-07-23 01:10 | RADIOLOGY REPORT ---
EXAMINATION: XR ELBOW, RIGHT CLINICAL INFORMATION: Pain. COMPARISON: None TECHNIQUE: 3 views. of the right elbow. FINDINGS: There is no fracture. No dislocation. There is no joint effusion. There is small linear soft tissue calcifications adjacent to the lateral humeral epicondyle consistent with a calcific tendinosis. No joint erosions or significant spur. The joint space is maintained. IMPRESSION: Linear calcifications adjacent to the lateral humeral epicondyle consistent with calcific tendinosis.
--- NOTE | 2017-07-23 01:12 | RADIOLOGY REPORT ---
EXAMINATION: XR HIP, RIGHT CLINICAL INFORMATION: Right hip pain COMPARISON: CT abdomen pelvis June 09, 2016 TECHNIQUE: Two views of the right hip. FINDINGS: The joint space is normal. No bone erosion. No significant spur. There is faint calcification of the cartilage of the right hip joint. This is better demonstrated on the CT exam of June 09, 2016. There is no acute abnormality. IMPRESSION: Chondrocalcinosis of the right hip. No acute abnormality.
[2017-07-23 03:22] LABS: ABSOLUTE BASOPHIL COUNT 0 /CUMM (0.0-0.2); ABSOLUTE EOSINOPHIL COUNT 0.1 /CUMM (0.0-0.7); ABSOLUTE GRANULOCYTE CT 7.2 /CUMM (1.4-6.5); ABSOLUTE LYMPH COUNT 1.8 /CUMM (1.2-3.4); ABSOLUTE MONOCYTE COUNT 0.7 /CUMM (0.10-0.60); BASOPHIL % 0.3 % (0.0-2.0); EOSINOPHIL % 1.1 % (0-5); GRANULOCYTE % 73.1 % (42.2-75.2); HEMATOCRIT 42.7 % (42-52); MEAN CORPUSCULAR HGB 30.5 PG (27.0-31.0); MEAN CORPUSCULAR HGB CONC 33.4 G/DL (33.0-37.0); MEAN CORPUSCULAR VOLUME 91.3 FL (80.0-94.0); MEAN PLATELET VOLUME 7.8 FL (7.4-10.4); PLATELET COUNT 184 /CUMM (130-400); RBC DISTRIBUTION WIDTH 13.5 % (11.5-14.5); RED BLOOD CELL CT 4.68 /CUMM (4.70-6.10); WHITE BLOOD CELL COUNT 9.9 /CUMM (4.8-10.8)
--- NOTE | 2017-07-23 07:39 | PN-Observation ---
Doc MERINO,Clei 07/23/17 0739: Observation Note Observation Note _ I have personally examined RODRIGO CARTER. him disposition is uncertain at this time. Before a determination can be made, he requires continued observation for the following reasons [frequent falls, right-sided weakness`, right-sided weakness]. Assessment/Plan Medical Assessment: Mr. Carter is an 89-year-old gentleman with past medical history significant for hypertension, hyperlipidemia, osteoarthritis, coronary artery disease status post CABG 5 and stent placement and CVA(left thalamic stroke in 2008) presents with right weakness after he had a fall around 7 PM this evening. Problem List 1. Fall 2. Right shoulder, elbow and hip pain 3. Right sided weakness 4. Left carotid artery stenosis 5. History of hypertension, hyperlipidemia and coronary artery disease 6. Alcohol use; Patient takes 1 shot of Vodka daily -Continue to observe on telemetry - Neuro checks every 4 hours. -Continue lisinopril 2.5 mg daily - Continue aspirin and atorvastatin. - MRI of the brain was negative for any acute stroke - Carotid ultrasound showed significant stenosis of the left carotid artery consistent with 5079% - Neurology consult appreciated (was placed) -Vascular consult appreciated (was placed) - Troponins and EKG 3 ruled out ACS - Will obtain echocardiogram - orthostatic vitals was negative - Check TSH, free T4, A1c and lipid panel. - Patient passed bedside swallow evaluation, started on a regular diet. - PT/OT evaluation - x-ray of the right shoulder, elbow and hip ruled out any fractures. - Pain managment - Will start the patient on CIWA protocol given recent alcohol use. DVT Prophylaxis; subcutaneous heparin Problem List: 1. Leg weakness 2. Arm weakness Subjective Follow-up For: Right-sided weakness Frequent falls Tele-Events Since Last Visit: No overnight events Subjective: Patient was seen and examined at bedside, continues to complain of pain and weakness of his right side, he was in a depressed mood however he denied any suicidal or homicidal ideation and he refused to speak to psychiatrist Review of Systems Constitutional: Reports: see HPI. Objective Last 24 Hrs of Vital Signs/I&O Vital Signs Date Time Temp Pulse Resp B/P B/P Pulse O2 O2 Flow FiO2 Mean Ox Delivery Rate 07/23 1429 97.6 73 18 120/60 97 Room Air 07/23 0800 98.2 66 20 140/70 07/23 0653 98.2 66 20 140/70 97 Room Air 07/23 0600 97.8 80 20 120/88 07/23 0200 97.5 70 16 130/70 07/23 0128 97.6 68 20 130/60 96 Room Air 07/22 2344 97.9 74 18 146/72 97 Room Air 07/22 2242 97.9 76 18 132/78 97 Room Air 07/22 2021 98 Room Air 07/22 2009 97.5 82 18 185/82 97 Room Air Intake & Output 07/23 1600 07/23 0800 07/23 0000 Intake Total 100 0 Output Total 50 300 Balance -50 -200 0 Intake, Oral 100 0 Output, Urine 50 300 Patient 120 lb 120 lb Weight Weight Reported by Patient Measurement Method Physical Exam General Appearance: Alert, Oriented X3, Cooperative, No Acute Distress HEENT: Atraumatic, PERRLA, EOMI, Mucous Membr. moist/pink Neck: Supple, No JVD Cardiovascular: Normal S1, Normal S2, No Murmurs Lungs: Clear to Auscultation Abdomen: Normal Bowel Sounds, Soft, No Tenderness Neurological: Normal Speech, Normal Tone, syrenghth is 3/5 in the RUE and RLE Extremities: No Clubbing, No Cyanosis, No Edema Rousseau,Kankiaheep 07/23/17 1352: Attending MD Review Statement Attending Statement Attending MD Statement: examined this patient, discuss w/resident/PA/AIR ANALYST, agreed w/resident/PA/AIR ANALYST, discussed with family, reviewed EMR data (avail), discussed w/ nursing, discussed w/case mgmt Attending Assessment/Plan: spoke with daughter at bedside. Pt had a fall at home and now has rt shoulder pain. Pt is supposed to use cane at home but does not use it. Pt also has chronic constipation and has to strain, pt was supposed to See Dr Gonzalez tomorrow. Await Neuro consult and MRI results. d/w pt the care plan.
--- NOTE | 2017-07-23 13:05 | MRI REPORT ---
EXAMINATION: MR BRAIN WITHOUT CONTRAST CLINICAL INFORMATION: 89-year-old man with right arm and leg weakness. COMPARISON: 07/22/[address], 05/15/2009 brain MRI TECHNIQUE: MRI of the brain without contrast was obtained using routine sequences. 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 There is ex vacuo dilation of the lateral ventricles and diffuse sulcal widening. A small chronic cortical infarct is noted at the left parietal convexity. Findings have worsened considerably since the prior MRI from 2009. No focal reduced diffusion is seen to suggest acute or subacute cerebral ischemia. No intracranial mass, intracerebral edema, midline shift, or extra-axial collection is visualized. Normal arterial and venous vascular flow voids are present. Mild mucosal thickening is seen in the ethmoid air cells. IMPRESSION: No imaging evidence of acute cerebral ischemia or hemorrhage. Chronic ischemic changes and volume loss as described.
--- NOTE | 2017-07-23 13:56 | ULTRASOUND REPORT ---
EXAMINATION: DUPLEX BILATERAL CAROTID ULTRASOUND CLINICAL INFORMATION: Right-sided weakness COMPARISON: 05/14/2009 TECHNIQUE: Duplex bilateral carotid US was performed using real-time ultrasound and Doppler techniques (integrating B-mode 2D vascular images, Doppler spectral analysis and color flow Doppler imaging). These techniques were utilized to interrogate the extracranial carotid and vertebral arteries bilaterally. The degree of stenosis is based off criteria similar to NASCET. FINDINGS: 1. On the right: Plaque is present at the carotid bifurcation extending into the right ICA. However, velocities are normal and do not suggest a stenosis of greater than 50% diameter reduction in the right ICA. The vertebral artery is patent demonstrating antegrade flow. The right ECA demonstrates a moderate stenosis with peak systolic velocity of 295 cm/s. 2. On the left: There is a hemodynamically significant stenosis correlating to 50-79% diameter reduction of the proximal internal carotid artery. A moderate amount of hyperechoic plaque is noted within the proximal internal and external carotid arteries. The peak systolic and diastolic velocities as measured within the proximal internal carotid artery equals 185 and 49 cm/s respectively. The vertebral artery is patent demonstrating antegrade flow. The left ECA demonstrates a moderate stenosis with peak systolic velocity of 270 cm/s. Since the previous study, velocities in the left ICA have increased from 129 to 185, but disease category remains the same. IMPRESSION: Hemodynamically significant stenoses consistent with a 50-79% diameter reduction of the proximal left internal carotid artery. A hemodynamically significant stenosis of greater than 50% is not present on the right.
--- NOTE | 2017-07-23 14:34 | ECHOCARDIOGRAM REPORT ---
RODRIGO SIEGEL Age: 89 : 1925 Gender: M Exam Date: 07/23/2017 09:24 Exam Location: [place] Ht (in): 63 Wt (lb): 120 BSA: 1.56 BP: 140 / 70 Ordering Physician: Anais Reddy MD Referring Physician: Anais Reddy MD Technologist: Minh Calzada [facility] Room Number: 189-1 Indications: STROKE Rhythm: Sinus Technical Quality: Fair, Technically difficult study FINDINGS Left Ventricle Normal size left ventricle. No obvious regional wall motion abnormalities. Normal left ventricular ejection fraction estimated at 55-60%. Right Ventricle Right ventricle not well visualized, grossly normal. Right Atrium Normal right atrial size. Left Atrium Left atrial size at the upper limits of normal. Mitral Valve Mitral valve thickened. Trace mitral regurgitation. Aortic Valve Trileaflet aortic valve. Diffuse thickening of the aortic valve cusps with reduced excursion. No aortic stenosis. No aortic regurgitation. Tricuspid Valve Tricuspid valve not well visualized, grossly normal. Mild tricuspid regurgitation. Right ventricular systolic pressure estimated at 26 mmHg. Pulmonic Valve Pulmonic valve not well visualized, grossly normal. Trace to mild pulmonic regurgitation. Pericardium No pericardial effusion. Great Vessels Aortic root and proximal ascending aorta not well visualized, grossly normal. CONCLUSIONS 1. This was a technically difficult examination. 2. Moderate aortic sclerosis is present (most prominent in the non coronary leaflet) with no valvular stenosis or insufficiency. 3. Mitral leaflet thickening is present with minimal mitral insufficiency 4. There is no pericardial fluid present. 5. The left ventricular chamber size and systolic function appear normal 6. Mild tricuspid and pulmonic insufficiency are present with no evidence of pulmonary hypertension. 7. The mid atrial septum appears redundant but was not optimally visualized. 8. THere are no definite embolic sources identified on this examination. If clinically indicated, a MARKELL would better exclude potential embolic sources and better assess the anatomy of the interatrial septum. Roshni Puente M.D. (Electronically Signed) Final Date: 23 July 2017 14:33 MEASUREMENTS (Male / Female) Normal Values 2D ECHO LV Diastolic Diameter PLAX 3.2 cm 4.2 - 5.9 / 3.9 - 5.3 cm LV Systolic Diameter PLAX 2.1 cm 2.1 - 4.0 cm LV Fractional Shortening PLAX 34.4 % 25 - 46 % LV Ejection Fraction 2D Teich 64.8 % IVS Diastolic Thickness 1.2 cm LVPW Diastolic Thickness 1.2 cm LV Relative Wall Thickness 0.8 RV Internal Dim ED PLAX 3.0 cm 1.9 - 3.8 cm LVOT Diameter 2.0 cm Aortic Root Diameter 3.4 cm LA Systolic Diameter LX 3.2 cm 3.0 - 4.0 / 2.7 - 3.8 cm LA Volume 30.0 cm 18 - 58 / 22 - 52 cm Ascending Aorta Diameter 3.3 cm DOPPLER AV Peak Velocity 138.0 cm/s AV Peak Gradient 7.6 mmHg AV Mean Velocity 92.8 cm/s AV Mean Gradient 4.0 mmHg AV Velocity Time Integral 28.2 cm LVOT Peak Velocity 67.7 cm/s LVOT Peak Gradient 1.8 mmHg LVOT Mean Velocity 42.0 cm/s LVOT Mean Gradient 1.0 mmHg LVOT Velocity Time Integral 14.5 cm LVOT Stroke Volume 45.6 cm AV Area Cont Eq vti 1.6 cm AV Area Cont Eq pk 1.5 cm MV Peak Velocity 112.0 cm/s MV Peak Gradient 5.0 mmHg MV Mean Velocity 56.9 cm/s MV Mean Gradient 2.0 mmHg Mitral E Point Velocity 47.9 cm/s Mitral A Point Velocity 91.8 cm/s Mitral E to A Ratio 0.5 MV PHT Velocity 70.6 cm/s MV Deceleration [place] 153.0 cm/s MV Pressure Half Time 138.4 ms MV Area PHT 1.6 cm MV Deceleration Time 701.0 ms TR Peak Velocity 231.0 cm/s TR Peak Gradient 21.3 mmHg Right Atrial Pressure 5.0 mmHg Pulmonary Artery Systolic Pressu 26.3 mmHg Right Ventricular Systolic Press 26.3 mmHg PV Peak Velocity 88.2 cm/s PV Peak Gradient 3.1 mmHg PV Mean Velocity 52.1 cm/s PV Mean Gradient 1.0 mmHg PV Velocity Time Integral 17.1 cm LV E' Lateral Velocity 6.4 cm/s Mitral E to LV E' Lateral Ratio 7.4 LV E' Septal Velocity 4.5 cm/s Mitral E to LV E' Septal Ratio 10.7
--- NOTE | 2017-07-23 20:01 | Cons- Neurology ---
General Information and HPI Consulting Request Date of Consult: 07/23/17 Requested By: Mark Rousseau MD Source of Information: patient, family, old records Exam Limitations: no limitations History of Present Illness: 89-year-old male presents with weakness predominantly right upper and right lower extremities History is obtained from patient and from patient's family and medical records A few weeks ago he noted a sense of weakness and he had fallen a few times He was able to use his hands to dress and to eat although he noted some difficulty with buttoning Yesterday he fell and was unable to get up from the ground He struck his head against the wall There was no loss of consciousness Subsequently he noted increased weakness of both upper extremities predominantly right side and increased weakness of both lower extremities predominantly right side He noted some sensory loss He has been unable to walk since that time and requires help for feeding There's been no significant headache or difficulty with speech Allergies/Medications Allergies: Coded Allergies: No Known Allergies (06/09/16) Home Med List: Amlodipine Besylate (Norvasc) 10 MG TABLET 1 TAB PO DAILY BP (Reported) Aspirin (Ecotrin*) 81 MG TABLET.DR 1 TAB PO DAILY HEART/BLOOD (Reported) Atorvastatin Calcium 40 MG TABLET 1 TAB PO DAILY CHOLESTEROL (Reported) Cyanocobalamin (Vitamin B-12) 1,000 MCG TABLET 1 TAB PO DAILY VITAMIN SUPPORT (Reported) Fish Oil/Dha/Epa (Fish Oil 1,200 MG Fish Oil) 1,200 MG-144 MG-216 MG CAPSULE 1 SGL PO DAILY HEART HEALTH (Reported) Garlic (Garlic Oil) 1,000 MG CAPSULE 1 CAP PO DAILY HEART HEALTH (Reported) Lisinopril 2.5 MG TABLET 1 TAB PO DAILY BP (Reported) Current Medications: Current Medications Sig/Dmitry Start time Last Medication Dose Route Stop Time Status Admin Acetaminophen 650 MG .STK-MED ONE 07/23 0807 DC PO 07/23 0808 Acetaminophen 650 MG Q6P PRN 07/22 2345 AC 07/23 PO 0818 Amlodipine Besylate 10 MG DAILY 07/24 1000 AC PO Aspirin 0 .STK-MED ONE 07/22 2224 DC PO Aspirin 325 MG ONCE ONE 07/22 2215 DC 07/22 PO 07/22 2216 2224 Aspirin Buffered 81 MG DAILY 07/24 1000 AC PO Atorvastatin Calcium 40 MG 1700 07/24 1700 AC PO Cyanocobalamin 1,000 MCG DAILY 07/24 1000 AC PO Enoxaparin Sodium 40 MG DAILY 07/23 1000 AC 07/23 SC 1045 Folic Acid 1 MG DAILY 07/23 1000 AC 07/23 PO 1044 Lisinopril 2.5 MG DAILY 07/24 1000 AC PO Multivitamins 1 TAB DAILY 07/23 1000 AC 07/23 PO 1044 Tetanus/Diphtheria 0 .STK-MED ONE 07/23 2223 DC Toxoids Adsorbed IM Tetanus/Diphtheria 0.5 ML ONCE ONE 07/22 2214 DC 07/22 Toxoids Adsorbed IM 07/22 Thiamine HCl 100 MG DAILY 07/23 1000 AC 07/23 PO 1044 Review of Systems Review of Systems: Denies headache or diplopia Hearing loss No difficulty with speech or swallowing Denies chest pains or breathing difficulties No nausea or vomiting Does have urinary frequency No significant swelling No recent fevers does note hearing loss which is chronic Other systems reviewed and negative Past History Travel History Traveled to [place] past 21 day No (family history positive for hy) Medical History Blood Transfusion Hx: No Neurological: NONE EENT: NONE Cardiovascular: CAD, hypertension, hyperlipidemia, CABG Respiratory: NONE Gastrointestinal: constipation Hepatic: NONE Renal: nephrolithiasis Musculoskeletal: osteoarthritis Psychiatric: NONE Endocrine: NONE Blood Disorders: NONE Cancer(s): NONE TRACK ANNOUNCER/Reproductive: NONE Surgical History Surgical History: CABG x 5, appendectomy Psychosocial History Where Do You Live? Home Who Do You Live With? spouse Smoking Status: Former Smoker ETOH Use: occasional use (TONIGHT) Illicit Drug Use: denies illicit drug use Functional Ability Ambulation: cane, walker Exam & Diagnostic Data Vital Signs and I&O Vital Signs Date Time Temp Pulse Resp B/P B/P Pulse O2 O2 Flow FiO2 Mean Ox Delivery Rate 07/23 1747 Room Air 07/23 1429 97.6 73 18 120/60 97 Room Air 07/23 0800 98.2 66 20 140/70 07/23 0653 98.2 66 20 140/70 97 Room Air 07/23 0600 97.8 80 20 120/88 07/23 0200 97.5 70 16 130/70 07/23 0128 97.6 68 20 130/60 96 Room Air 07/22 2344 97.9 74 18 146/72 97 Room Air 07/22 2242 97.9 76 18 132/78 97 Room Air 07/22 2021 98 Room Air 07/22 2009 97.5 82 18 185/82 97 Room Air Intake & Output 07/23 1600 07/23 0800 07/23 0000 Intake Total 400 100 0 Output Total 50 300 Balance 350 -200 0 Intake, Oral 400 100 0 Number 0 Bowel Movements Output, Urine 50 300 Patient 120 lb 120 lb Weight Weight Reported by Patient Measurement Method Physical Exam: Alert and oriented Language functions fund of knowledge attention span concentration intact Heart sounds normal no carotid bruits distal pulses intact Extraocular movements full, pupils equal reactive, fundi benign, visual soler intact, no facial weakness or facial sensory loss, palate tongue and shoulders intact, hearing mildly impaired Mild increase in tone upper and lower extremities Weakness upper extremities distally and intrinsic hand movements right greater than left Weakness lower extremities right greater than left predominantly proximally; increased tone No clear sensory loss to light touch or position though patient has a sense of mild numbness in both upper and lower extremities Deep tendon reflexes mildly exaggerated lower extremities Plantar response upgoing bilaterally Coordinative functions upper extremities grossly intact Patient unable to walk Last 48 Hours of Lab Results: Laboratory Tests 07/23 07/23 0750 0255 Chemistry Troponin I (<0.11 ng/ml) 0.02 Urines Urinalysis LIGHT H Urine Color (YEL,AMB,STR) YEL Urine Clarity (CLEAR) CLEAR Urine pH (5.0 - 8.0) 7.5 Ur Specific [place] (1.001 - 1.035) 1.015 Urine Protein (NEG,<30 MG/DL) TRACE H Urine Ketones (NEG) NEG Urine Nitrite (NEG) NEG Urine Bilirubin (NEG) NEG Urine Urobilinogen (0.1 - 1.0 EU/dl) 0.2 Ur Leukocyte Esterase (NEG) NEG Ur Microscopic SEDIMENT EXAMINED Urine RBC (0 - 5 /HPF) RARE Urine WBC (0 - 2 /HPF) RARE Ur Epithelial Cells (NONE,FEW) RARE Urine Bacteria (NEG/NONE) FEW H Granular Casts (NONE /LPF) RARE H Urine Mucus (FEW,NONE) FEW Urine Hemoglobin (NEG) NEG Urine Glucose (N MG/DL) NEG 07/23 07/22 0255 2042 Chemistry Sodium (137 - 145 mmol/L) 141 141 Potassium (3.5 - 5.1 mmol/L) 4.1 4.8 Chloride (98 - 107 mmol/L) 105 105 Carbon Dioxide (22 - 30 mmol/L) 26 23 Anion Gap (5 - 16) 11 13 BUN (9 - 20 mg/dL) 18 20 Creatinine (0.7 - 1.2 mg/dL) 0.7 0.6 L Estimated GFR (>60 ml/min) > 60 > 60 BUN/Creatinine Ratio (7 - 25 %) 25.7 H 33.3 H Glucose (65 - 99 mg/dL) 118 H Hemoglobin A1c (4.2 - 5.8 %) 5.5 Calcium (8.4 - 10.2 mg/dL) 9.5 Total Bilirubin (0.2 - 1.3 mg/dL) 0.6 AST (17 - 59 U/L) 26 ALT (21 - 72 U/L) 24 Alkaline Phosphatase (< 127 U/L) 78 Troponin I (<0.11 ng/ml) 0.02 Total Protein (6.3 - 8.2 g/dL) 6.6 Albumin (3.5 - 5.0 g/dL) 4.0 Globulin (1.9 - 4.2 gm/dL) 2.6 Albumin/Globulin Ratio (1.1 - 2.2 %) 1.5 Triglycerides (<150 mg/dL) 96 Cholesterol (< 200 MG/DL) 164 LDL Cholesterol, Calc (65 - 129 mg/dL) 95 HDL Cholesterol (40 - 60 mg/dL) 50 Cholesterol/HDL Ratio (0.00 - 4.88 %) 3 Vitamin B12 (239 - 931 pg/mL) 740 25-OH Vitamin D Total (30 - 100 ng/ml) 22.0 L TSH (0.270 - 4.200 uIU/mL) 1.880 Free T4 (0.85 - 1.93 ng/dL) 1.19 Hematology CBC w Diff NO MAN DIFF REQ NO MAN DIFF REQ WBC (4.8 - 10.8 /CUMM) 9.9 8.0 RBC (4.70 - 6.10 /CUMM) 4.68 L 4.96 Hgb (14.0 - 18.0 G/DL) 14.3 15.1 Hct (42 - 52 %) 42.7 45.2 MCV (80.0 - 94.0 FL) 91.3 91.1 MCH (27.0 - 31.0 PG) 30.5 30.5 MCHC (33.0 - 37.0 G/DL) 33.4 33.4 RDW (11.5 - 14.5 %) 13.5 13.4 Plt Count (130 - 400 /CUMM) 184 204 MPV (7.4 - 10.4 FL) 7.8 7.7 Gran % (42.2 - 75.2 %) 73.1 64.4 Lymphocytes % (20.5 - 51.1 %) 18.2 L 25.2 Monocytes % (1.7 - 9.3 %) 7.3 7.5 Eosinophils % (0 - 5 %) 1.1 2.4 Basophils % (0.0 - 2.0 %) 0.3 0.5 Absolute Granulocytes (1.4 - 6.5 /CUMM) 7.2 H 5.2 Absolute Lymphocytes (1.2 - 3.4 /CUMM) 1.8 2.0 Absolute Monocytes (0.10 - 0.60 /CUMM) 0.7 H 0.6 Absolute Eosinophils (0.0 - 0.7 /CUMM) 0.1 0.2 Absolute Basophils (0.0 - 0.2 /CUMM) 0 0 Toxicology Serum Alcohol (<10 MG/DL) 44.0 Imaging/Other Studies: MRI brain IMPRESSION: No imaging evidence of acute cerebral ischemia or hemorrhage. Chronic ischemic changes and volume loss as described. CT cervical spine FINDINGS: Degenerative changes. No acute fracture or dislocation. There is grade 1 bordering grade 2 anterolisthesis of C7 on T1. This is likely degenerative in nature. 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
--- NOTE | 2017-07-23 20:49 | Event Note ---
Event Note Event Note: Neurologist Suggested MRI of Cervical Spine to r/o cervical spine stenosis/ compression and neurosurgery evaluation if MRI is positive. Called Dr. Camacho as MRI can not be done at night and also not available on , If the patient needs STAT MRI we should transfer him to another facility. He did not recommend transferring the patient at this time, we can wait till morning and the attending in am can decide if he wants to wait till Sun or send the patient out for MRI. No IV steroids needed for now. Discussed with Dr. Christine.
[2017-07-24 06:58] VITALS: BP 160/76
--- NOTE | 2017-07-24 06:59 | PN- Housestaff ---
Doc MERINO,Celi 07/24/17 0659: Subjective Follow-up For: 1. Fall 2. Right shoulder, elbow and hip pain 3. Right sided weakness 4. Left carotid artery stenosis 5. History of hypertension, hyperlipidemia and coronary artery disease 6. Alcohol use; Patient takes 1 shot of Vodka daily Tele-Events Since Last Visit: Normal sinus rhythm, 4771, 0.12, few dropped QRS Subjective: Patient was seen and examined at bedside, continues to complain of pain and weakness of the right side of the body, denies any headache, nausea, vomiting, diarrhea or constipation Review of Systems Constitutional: Reports: see HPI. Objective Last 24 Hrs of Vital Signs/I&O Vital Signs Date Time Temp Pulse Resp B/P B/P Pulse O2 O2 Flow FiO2 Mean Ox Delivery Rate 07/24 0658 97.7 75 20 160/76 96 Room Air 07/24 0600 53 07/24 0400 53 07/24 0200 58 07/24 0000 56 07/23 2258 98.0 70 18 110/72 96 Room Air 07/23 2200 60 07/23 2131 Room Air 07/23 2000 70 07/23 1747 Room Air 07/23 1429 97.6 73 18 120/60 97 Room Air Intake & Output 07/24 1600 07/24 0800 07/24 0000 Intake Total 50 120 Output Total 350 450 Balance -300 -330 Intake, Oral 50 120 Number 0 Bowel Movements Output, Urine 350 450 Physical Exam General Appearance: Alert, Oriented X3, Cooperative, No Acute Distress HEENT: PERRLA, EOMI, Mucous Membr. moist/pink, 2X2 cm abrasion in the scalp, few abrasions in the forehead and face Neck: Supple, No JVD Cardiovascular: Normal S1, Normal S2, No Murmurs Lungs: Clear to Auscultation Abdomen: Normal Bowel Sounds, Soft Neurological: Normal Speech, 3/5 strenghth on the right side of th body Assessment/Plan Assessment: Mr. Carter is an 89-year-old gentleman with past medical history significant for hypertension, hyperlipidemia, osteoarthritis, coronary artery disease status post CABG 5 and stent placement and CVA(left thalamic stroke in 2009) presents with right weakness after he had a fall around 7 PM this evening. Problem List 1. Fall 2. Right shoulder, elbow and hip pain 3. Right sided weakness 4. Left carotid artery stenosis 5. History of hypertension, hyperlipidemia and coronary artery disease 6. Alcohol use; Patient takes 1 shot of Vodka daily -Continue to observe on telemetry - Neuro checks every 4 hours. -Continue lisinopril 2.5 mg daily - Continue aspirin and atorvastatin. - MRI of the brain was negative for any acute stroke -MRI of the cervical spine (cannot be done before tomorrow, discussed with attendant,) - Carotid ultrasound showed significant stenosis of the left carotid artery consistent with 5079% - Neurology consult appreciated (was placed) -Vascular consult appreciated (was placed) - Troponins and EKG 3 ruled out ACS - Will obtain echocardiogram - orthostatic vitals was negative - TSH, free T4, A1c and lipid panel normal. - PT/OT evaluation - Pain managment - continue CIWA protocol given recent alcohol use. DVT Prophylaxis; subcutaneous heparin Problem List: 1. Leg weakness 2. Arm weakness Pain Ratin Pain Location: right side of the body Pain Goal: Remain pain free Pain Plan: pathway Tomorrow's Labs & Rationales: [facility] Mark Ward 07/24/17 1554: Attending MD Review Statement Attending Statement Attending MD Statement: examined this patient, discuss w/resident/PA/LEARNING TECHNOLOGIST, agreed w/resident/PA/LEARNING TECHNOLOGIST, reviewed EMR data (avail), discussed with nursing, discussed with case mgmt Attending Assessment/Plan: Awaiting vascular consult . appreciated neuro consult- b12 level normal, low vit D started on supplements. Await MRI c spine tomorrow. MRI brain shows no acute infarct. d/w physical therapy and plan is to dc to [facility] d/w pt and pts family at bedside the care plan.
[2017-07-24 14:18] VITALS: BP 108/60
--- NOTE | 2017-07-24 15:55 | Cons- Vascular Surgery ---
General Information and HPI Consulting Request Date of Consult: 07/24/17 Requested By: Mark Rousseau MD Reason for Consult: Fall.R. arm weakness, JOSUE Source of Information: patient, old records Exam Limitations: poor historian History of Present Illness: 89 year old with multiple medical problems and recent fall. This appears to be a mechanical fall although he has expressed issues prior and wakness in the RUE. However he states the pain in his arm and discomfort when moving it is worse since the fall. He denies any previous episode. He denies claudication or rest pain. Denies ahpasia or visual changes. Allergies/Medications Allergies: Coded Allergies: No Known Allergies (06/09/16) Home Med List: Acetaminophen (Tylenol) 325 MG TABLET 650 MG PO Q6P PRN PAIN SCALE 1-3 (MILD) Amlodipine Besylate (Norvasc) 10 MG TABLET 1 TAB PO DAILY BP (Reported) Aspirin (Ecotrin*) 81 MG TABLET.DR 1 TAB PO DAILY HEART/BLOOD (Reported) Atorvastatin Calcium 40 MG TABLET 1 TAB PO DAILY CHOLESTEROL (Reported) Cyanocobalamin (Vitamin B-12) 1,000 MCG TABLET 1 TAB PO DAILY VITAMIN SUPPORT (Reported) Fish Oil/Dha/Epa (Fish Oil 1,200 MG Fish Oil) 1,200 MG-144 MG-216 MG CAPSULE 1 SGL PO DAILY HEART HEALTH (Reported) Gabapentin 100 MG CAPSULE 100 MG PO Q8H pain Garlic (Garlic Oil) 1,000 MG CAPSULE 1 CAP PO DAILY HEART HEALTH (Reported) Lisinopril 2.5 MG TABLET 1 TAB PO DAILY BP (Reported) Polyethylene Glycol 3350 (Miralax) 17 GRAM/DOSE POWDER 17 GM PO DAILY PRN CONSTIPATION Prednisone 10 MG TABLET 1 TAB PO DAILY spinal cord compression take 5 tabs po daily on 07/26 and 07/27 take 4 tabs po daily on 07/28 ansd 07/29 take 3 tabs po daily on 07/30 and 07/31 take 2 tabs po daily on 08/01 and 08/02 take one tab po daily on 08/03 and 08/04 then stop Sennosides/Docusate Sodium (Senna Plus Tablet) 8.6 MG-50 MG TABLET 2 TAB PO DAILY PRN CONSTIPATION Current Medications: Current Medications Sig/Dmitry Start time Last Medication Dose Route Stop Time Status Admin Acetaminophen 650 MG Q6P PRN 07/22 2345 AC 07/24 PO 0954 Amlodipine Besylate 10 MG DAILY 07/24 1000 AC 07/24 PO 0953 Aspirin Buffered 81 MG DAILY 07/24 1000 AC 07/24 PO 0952 Atorvastatin Calcium 40 MG 1700 07/24 1700 AC PO Cholecalciferol 2,000 IU DAILY 07/24 1012 AC 07/24 PO 1409 Cyanocobalamin 1,000 MCG DAILY 07/24 1000 AC 07/24 PO 0953 Enoxaparin Sodium 40 MG DAILY 07/23 1000 AC 07/24 SC 0954 Folic Acid 1 MG DAILY 07/23 1000 AC 07/24 PO 0952 Lisinopril 2.5 MG DAILY 07/24 1000 AC 07/24 PO 0953 Multivitamins 1 TAB DAILY 07/23 1000 AC 07/24 PO 0952 Polyethylene Glycol 17 GM DAILY 07/24 1201 AC 07/24 PO 1410 Polyethylene Glycol 17 GM DAILY PRN 07/24 1200 AC PO Senna/Docusate Sodium 2 TAB DAILY PRN 07/24 1200 AC 07/24 PO 1410 Thiamine HCl 100 MG DAILY 07/23 1000 AC 07/24 PO 0953 Past History Medical History Blood Transfusion Hx: No Neurological: NONE EENT: NONE Cardiovascular: CAD, hypertension, hyperlipidemia, CABG Respiratory: NONE Gastrointestinal: constipation Hepatic: NONE Renal: nephrolithiasis Musculoskeletal: osteoarthritis Psychiatric: NONE Endocrine: NONE Blood Disorders: NONE Cancer(s): NONE 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 Home Who Do You Live With? spouse Smoking Status: Former Smoker ETOH Use: occasional use (TONIGHT) Illicit Drug Use: denies illicit drug use Functional Ability Ambulation: cane, walker Review of Systems Review of Systems: RUE/hand weakness Review of Systems Constitutional: Reports: no symptoms. Neurological/Psychological: Reports: weakness. Exam & Diagnostic Data Vital Signs and I&O Vital Signs Date Time Temp Pulse Resp B/P B/P Pulse O2 O2 Flow FiO2 Mean Ox Delivery Rate 07/24 1418 98.8 69 18 108/60 96 Room Air 07/24 0953 75 160/76 07/24 0953 75 160/76 07/24 0658 97.7 75 20 160/76 96 Room Air 07/24 0600 53 07/24 0400 53 07/24 0200 58 07/24 0000 56 07/23 2258 98.0 70 18 110/72 96 Room Air 07/23 2200 60 07/23 2131 Room Air 07/23 2000 70 07/23 1747 Room Air Intake & Output 07/24 1600 07/24 0800 07/24 0000 07/23 1600 07/23 0807/23 0000 Intake Total 50 120 400 100 0 Output Total 350 450 50 300 Balance -300 -330 350 -200 0 Intake, Oral 50 120 400 100 0 Number 0 0 Bowel Movements Output, Urine 350 450 50 300 Patient 120 lb 120 lb Weight Weight Reported by Patient Measurement Method Physical Exam: PE: AF/VSS EXT: Well perfused Neuro: R. hand/weakness Assessment/Plan Assessment/Plan A/P 50-70% L. JOSUE, ? symptomatic vs fall. 1.) Recommend CTA neck 2.) Cont. antiplatelet 3.) F/u with outpt. care for JOSUE based on CTA 4.) Cont. medical therapy/rehab as tolerated Consult Acknowledgment - Thank you for your consult request.
[2017-07-24 22:28] VITALS: BP 130/62
[2017-07-25 06:30] VITALS: BP 136/70
--- NOTE | 2017-07-25 07:24 | CT SCAN REPORT ---
CT ANGIOGRAM HEAD AND NECK WITH IV CONTRAST CLINICAL INFORMATION: CVA. Carotid artery stenosis on the right side. COMPARISON: Carotid ultrasound 07/23/2017. TECHNIQUE: Test bolus sequences followed by administration of 95 mL of Optiray 320 intravenous contrast. Helical imaging was performed in the axial plane of the head and neck. The data was processed at the electroencephalograph technologist workstation for generation of MIP sequences. Three-dimensional volume rendered reformatted images were also generated at an offline 3-D workstation. Carotid stenoses graded per NASCET criteria. FINDINGS: HEAD: No evolved acute territorial infarcts are identified. Chronic lacunar infarcts within the deep schuler nuclei bilaterally and the right cerebellum are again noted. There is no pathologic intracranial enhancement. No hydrocephalus or extra-axial surface collection. No midline shift. NECK: The visualized upper lungs are clear. There are no significant soft tissue findings within the neck. Partially imaged median sternotomy wires. There is moderate to severe cervical spondylosis. Varying degrees of moderate to severe foraminal stenosis throughout the cervical spine. There is mild anterior subluxation of C3 on C4, C7 on T1, and T1 on T2. Possible moderate to severe central canal stenosis at C3-C4 and C4-C5. The paranasal sinuses and the mastoid air cells remain well-aerated. NECK CTA: There is atherosclerotic calcification throughout the aortic arch. The great vessel origins remain patent and there is a 3 great vessel branch configuration off of the aortic arch. Atherosclerotic calcification results in moderate stenoses of the vertebral artery origins bilaterally. The vertebral arteries are codominant and otherwise remain widely patent throughout their cervical course. The common carotid arteries are widely patent. There is atherosclerotic calcification at the left greater than right carotid bifurcation resulting in a 60-70% stenosis of the proximal left internal carotid artery and a less than 50% stenosis of the proximal right internal carotid artery. The internal carotid arteries are otherwise widely patent. Severe stenosis of the right external carotid artery origin and moderate stenosis of the left external carotid artery origin. BRAIN CTA: There is normal opacification of major intracranial arteries. No focal flow-limiting stenosis, discrete proximal large artery occlusion, or saccular intradural aneurysm is identified. Timing of the contrast bolus allows assessment of the major dural venous sinuses, which all opacify normally. IMPRESSION: - No acute intracranial findings. Stable chronic ischemic changes and cerebral volume loss. - There are no acute arterial occlusions intracranially. - There is atherosclerotic calcification at the left greater than right carotid bifurcation resulting in a 60-70% stenosis of the proximal left internal carotid artery and a less than 50% stenosis of the proximal right internal carotid artery by NASCET criteria. Severe stenosis of the right external carotid artery origin and moderate stenosis of the left external carotid artery origin. - There is moderate to severe cervical spondylosis. Varying degrees of moderate to severe foraminal stenosis throughout the cervical spine. There is mild anterior subluxation of C3 on C4, C7 on T1, and T1 on T2. Possible moderate to severe central canal stenosis at C3-C4 and C4-C5.
--- NOTE | 2017-07-25 07:25 | PN- Housestaff ---
Doc MERINO,Celi 07/25/17 0725: Subjective Follow-up For: 1. Fall 2. Right shoulder, elbow and hip pain 3. Right sided weakness 4. Left carotid artery stenosis 5. History of hypertension, hyperlipidemia and coronary artery disease 6. Alcohol use; Patient takes 1 shot of Vodka daily Complaints: pain scale (0-10) Tele-Events Since Last Visit: Sinus bradycardianormal sinus rhythm, 4565, 0.12, 0.14 with junctional beats Subjective: Patient was seen and examined at bedside, he continues to complain of pain and weakness in his right upper extremity in addition today he started to complain of pain in his left arm Review of Systems Constitutional: Reports: see HPI. Objective Last 24 Hrs of Vital Signs/I&O Vital Signs Date Time Temp Pulse Resp B/P B/P Pulse O2 O2 Flow FiO2 Mean Ox Delivery Rate 07/25 0630 97.2 65 18 136/70 97 07/25 0000 Nasal 2.0L Cannula 07/24 2228 98.0 59 18 130/62 95 07/24 1600 Room Air 07/24 1418 98.8 69 18 108/60 96 Room Air 07/24 0953 75 160/76 07/24 0953 75 160/76 Intake & Output 07/25 1600 07/25 0800 07/25 0000 Intake Total 438 Output Total 200 Balance -200 438 Intake, Oral 438 Output, Urine 200 Patient 150 lb Weight Weight Bed scale Measurement Method Physical Exam General Appearance: Alert, Oriented X3, Cooperative, No Acute Distress HEENT: Atraumatic, PERRLA, EOMI, Mucous Membr. moist/pink Neck: Supple, No JVD Cardiovascular: Normal S1, Normal S2, No Murmurs Lungs: Clear to Auscultation Abdomen: Normal Bowel Sounds, Soft, No Tenderness Neurological: Normal Speech, 3/5 STRENGHTH ON THE RIGHT UE AND LE Extremities: No Clubbing, No Cyanosis, No Edema Vascular: Normal Pulses Assessment/Plan Assessment: Mr. Carter is an 89-year-old gentleman with past medical history significant for hypertension, hyperlipidemia, osteoarthritis, coronary artery disease status post CABG 5 and stent placement and CVA(left thalamic stroke in 2009) presents with right weakness after he had a fall around 7 PM this evening. CTA neck 07/24/17 showed: No acute intracranial findings. Stable chronic ischemic changes and cerebral volume loss. - There are no acute arterial occlusions intracranially. - There is atherosclerotic calcification at the left greater than right carotid bifurcation resulting in a 60-70% stenosis of the proximal left internal carotid artery and a less than 50% stenosis of the proximal right internal carotid artery by NASCET criteria. Severe stenosis of the right external carotid artery origin and moderate stenosis of the left external carotid artery origin. - There is moderate to severe cervical spondylosis. Varying degrees of moderate to severe foraminal stenosis throughout the cervical spine. There is mild anterior subluxation of C3 on C4, C7 on T1, and T1 on T2. Possible moderate to severe central canal stenosis at C3-C4 and C4-C5. ECHO: 1. This was a technically difficult examination. 2. Moderate aortic sclerosis is present (most prominent in the non coronary leaflet) with no valvular stenosis or insufficiency. 3. Mitral leaflet thickening is present with minimal mitral insufficiency 4. There is no pericardial fluid present. 5. The left ventricular chamber size and systolic function appear normal 6. Mild tricuspid and pulmonic insufficiency are present with no evidence of pulmonary hypertension. 7. The mid atrial septum appears redundant but was not optimally visualized. 8. THere are no definite embolic sources identified on this examination. If clinically indicated, a MARKELL would better exclude potential embolic sources and better assess the anatomy of the interatrial septum. Problem List 1. Fall 2. Right shoulder, elbow and hip pain 3. Right sided weakness 4. Left carotid artery stenosis 5. History of hypertension, hyperlipidemia and coronary artery disease 6. 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 -Continue lisinopril 2.5 mg daily - Continue aspirin and atorvastatin. - MRI of the brain was negative for any acute stroke -F/U on MRI of the cervical spine - Neurology recommendations appreciated -Vascular recommendation appreciate -Neurosurgical consult appreciated -Was started prednisone taper as per discussion with Dr Jon -Start the gabapentin 100 mg 3 times daily -Soft cervical collar - Troponins and EKG 3 ruled out ACS - orthostatic vitals was negative - PT/OT evaluation - Pain managment - continue CIWA protocol given recent alcohol use. DVT Prophylaxis; subcutaneous heparin Problem List: 1. Leg weakness 2. Arm weakness Pain Ratin Pain Location: N/A Pain Goal: Remain pain free Pain Plan: pathway Tomorrow's Labs & Rationales: cbc bep Mark Rousseau 07/25/17 1425: Attending MD Review Statement Attending Statement Attending MD Statement: examined this patient, discuss w/resident/PA/COMMUNICATIONS ASSOCIATE, agreed w/resident/PA/COMMUNICATIONS ASSOCIATE, discussed with family, reviewed EMR data (avail), discussed with nursing, discussed with case mgmt Attending Assessment/Plan: Had d/w pts family and neurologist. Pt will be going for MRI of c spine today to evaluate more his weakness. d/w neurosurgery by resident and they recommended start pt on steroid taper. Pt feels depressed but refuses being seen by psychiatrist. Disposition - plan to dc to [facility] when stable from neuro and NSG standpoint. will await vascular surgery input based on CTA neck finidngs of 60-70% of proximal Lt ICA stenosis.
[2017-07-25 08:02] LABS: ABSOLUTE BASOPHIL COUNT 0 /CUMM (0.0-0.2); ABSOLUTE EOSINOPHIL COUNT 0.3 /CUMM (0.0-0.7); ABSOLUTE LYMPH COUNT 2.6 /CUMM (1.2-3.4); ABSOLUTE MONOCYTE COUNT 0.9 /CUMM (0.10-0.60); BASOPHIL % 0.4 % (0.0-2.0); EOSINOPHIL % 3.3 % (0-5); MEAN CORPUSCULAR HGB 30.9 PG (27.0-31.0); MEAN CORPUSCULAR HGB CONC 33.7 G/DL (33.0-37.0); MEAN CORPUSCULAR VOLUME 91.5 FL (80.0-94.0); MEAN PLATELET VOLUME 8.4 FL (7.4-10.4); RBC DISTRIBUTION WIDTH 13.7 % (11.5-14.5); RED BLOOD CELL CT 4.49 /CUMM (4.70-6.10); WHITE BLOOD CELL COUNT 8.8 /CUMM (4.8-10.8)
--- NOTE | 2017-07-25 08:22 | Discharge Summary ---
Visit Information Visit Dates Admission Date: 07/23/17 Discharge Date: 07/26/2017 Hospital Course Course Attending Physician: Onelia MERINO,Mark Tolentino Primary Care Physician: Fransisco Saravia MD Hospital Course: Mr. Carter is a 89-year-old male with past medical history significant for hypertension, CAD s/p CABG (1989) and recent stent placement, arthritis, previous left thalamic stroke with no residual deficit presented to ED for evaluation after witnessed fall at home and right side weakness and numbness. Patient struck his head against the wall without loss of consciousness. He had stable vital signs on admission and neuro exam revealed clear speech, cranial nerves intact, power 5/5 left side, 3/5 on the right upper and lower extremity, active ROM is limited able to lift arm up to 90 degrees but not beyond, uses left hand to bring it higher. Unable to pronate the right hand, difficult to assess pronator drift. Right lower extremity similarly 2-3/5 power, reflexes 2+, sensation intact, plantars downgoing. Cerebellar able to perform on left side, on the right he attempts with difficulty. Patient was admitted to neuro telemetry floor to rule out stroke. On admission CT head did not reveal any acute findings except from age-related ischemic changes. CT of maxillofacial bone and cervical spine revealed no acute fracture or dislocation. CT cervical spine positive for bordering grade 2 anterolisthesis of C7 on T1 that is likely degenerative in nature. Right shoulder, elbow and hip x-ray negative for fracture or dislocation. Ultrasound Doppler carotid showed hemodynamically significant stenoses consistent with a 50-79% diameter reduction of the proximal left internal carotid artery. A hemodynamically significant stenosis of greater than 50% is not present on the right. Neuro consultation was obtained and evaluation pointed out possible cervical stenosis with possible contusion. Recommendation neurosurgery consultatioN after MRI cervical spine. Neurosurgery evaluation was obtained, Dr. Mahajan reviewed the CTA and MRI findings, multilevel cervical spondylosis is worst at C3-C4 and C4-C5, where there is severe canal and foraminal stenosis and associated cord myelomalacia. Recommendation are cervical immobilization, gabapentin 100 3 times daily and prednisone 60 mg once with tapering dose, and out patient follow up as patient is not willing to proceed with any invasive intervention. Neurologist recommended spinal cord rehab at [facility] however his insurence does not cover this per CM. Vascular surgical consultation was obtained as well for evaluation of Doppler carotid ultrasound findings, subsequent CTA carotid arteries revealed 50-79% stenosis of proximal left internal carotid artery. Recommendation for vascular outpatient follow-up as patient has moderate stenosis. Echocardiogram was obtained, CONCLUSIONS 1. This was a technically difficult examination. 2. Moderate aortic sclerosis is present (most prominent in the non coronary leaflet) with no valvular stenosis or insufficiency. 3. Mitral leaflet thickening is present with minimal mitral insufficiency 4. There is no pericardial fluid present. 5. The left ventricular chamber size and systolic function appear normal 6. Mild tricuspid and pulmonic insufficiency are present with no evidence of pulmonary hypertension. 7. The mid atrial septum appears redundant but was not optimally visualized. 8. THere are no definite embolic sources identified on this examination. If clinically indicated, a MARKELL would better exclude potential embolic sources and better assess the anatomy of the interatrial septum. Roshni Puente M.D. (Electronically Signed) Final Date: 23 July 2017 Images EXAM TYPE: CAT - CT NECK ANGIOGRAM CT ANGIOGRAM HEAD AND NECK WITH IV CONTRAST CLINICAL INFORMATION: CVA. Carotid artery stenosis on the right side. COMPARISON: Carotid ultrasound 07/23/2017. TECHNIQUE: Test bolus sequences followed by administration of 95 mL of Optiray 320 intravenous contrast. Helical imaging was performed in the axial plane of the head and neck. The data was processed at the public health technologist workstation for generation of MIP sequences. Three-dimensional volume rendered reformatted images were also generated at an offline 3-D workstation. Carotid stenoses graded per NASCET criteria. FINDINGS: HEAD: No evolved acute territorial infarcts are identified. Chronic lacunar infarcts within the deep schuler nuclei bilaterally and the right cerebellum are again noted. There is no pathologic intracranial enhancement. No hydrocephalus or extra-axial surface collection. No midline shift. NECK: The visualized upper lungs are clear. There are no significant soft tissue findings within the neck. Partially imaged median sternotomy wires. There is moderate to severe cervical spondylosis. Varying degrees of moderate to severe foraminal stenosis throughout the cervical spine. There is mild anterior subluxation of C3 on C4, C7 on T1, and T1 on T2. Possible moderate to severe central canal stenosis at C3-C4 and C4-C5. The paranasal sinuses and the mastoid air cells remain well-aerated. NECK CTA: There is atherosclerotic calcification throughout the aortic arch. The great vessel origins remain patent and there is a 3 great vessel branch configuration off of the aortic arch. Atherosclerotic calcification results in moderate stenoses of the vertebral artery origins bilaterally. The vertebral arteries are codominant and otherwise remain widely patent throughout their cervical course. The common carotid arteries are widely patent. There is atherosclerotic calcification at the left greater than right carotid bifurcation resulting in a 60-70% stenosis of the proximal left internal carotid artery and a less than 50% stenosis of the proximal right internal carotid artery. The internal carotid arteries are otherwise widely patent. Severe stenosis of the right external carotid artery origin and moderate stenosis of the left external carotid artery origin. BRAIN CTA: There is normal opacification of major intracranial arteries. No focal flow-limiting stenosis, discrete proximal large artery occlusion, or saccular intradural aneurysm is identified. Timing of the contrast bolus allows assessment of the major dural venous sinuses, which all opacify normally. IMPRESSION: - No acute intracranial findings. Stable chronic ischemic changes and cerebral volume loss. - There are no acute arterial occlusions intracranially. - There is atherosclerotic calcification at the left greater than right carotid bifurcation resulting in a 60-70% stenosis of the proximal left internal carotid artery and a less than 50% stenosis of the proximal right internal carotid artery by NASCET criteria. Severe stenosis of the right external carotid artery origin and moderate stenosis of the left external carotid artery origin. - There is moderate to severe cervical spondylosis. Varying degrees of moderate to severe foraminal stenosis throughout the cervical spine. There is mild anterior subluxation of C3 on C4, C7 on T1, and T1 on T2. Possible moderate to severe central canal stenosis at C3-C4 and C4-C5. EXAM TYPE: MRI - MRI-CERVICAL SPINE EXAMINATION: MR CERVICAL SPINE WITHOUT CONTRAST CLINICAL INFORMATION: 89-year-old man with right arm weakness. COMPARISON: 05/15/2009 MRI, 07/22/2017 CT TECHNIQUE: MRI of the cervical spine without contrast was obtained using routine sequences. FINDINGS: There is persistent loss of the normal cervical lordosis with slight anterolisthesis of C3 on C4 and grade 1 anterolisthesis of C7 on T1. Vertebral bodies are normal in height. Degenerative endplate marrow signal and associated contour changes are seen at all levels and are probably worst at C3-C4. There is mild loss of normal disc height at most levels with some sparing of C2-C3 and C4-C5. The craniocervical junction is normal in appearance. 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 The right lobe of the thyroid gland is asymmetrically enlarged. C2-C3: Disc osteophyte complex slightly effaces the ventral CSF space. The canal remains patent. Facet arthrosis more than uncovertebral spurring leads to mild narrowing of the neural foramina. C3-C4: Disc osteophyte complex and ligamentous hypertrophy lead to severe canal stenosis with deformation of the normal cord contours. Uncovertebral spurring and facet arthrosis lead to severe narrowing of the neural foramina. Bone marrow edema centered around the right facet articulation is presumably reactive. C4-C5: Disc osteophyte complex flattens the ventral cord contour and leads to severe canal stenosis. Uncovertebral spurring and facet arthrosis both contribute to severe narrowing of the neural foramina, left greater than right. C5-C6: Disc osteophyte complex effaces the ventral CSF space and leads to mild canal stenosis. Uncovertebral hypertrophy and facet arthrosis contribute to moderate narrowing of the neural foramina. C6-C7: Disc osteophyte complex slightly effaces the ventral CSF space. The canal remains patent. Uncovertebral hypertrophy and facet arthrosis both contribute to moderate narrowing of the neural foramina. C7-T1: The disc is uncovered with a superimposed diffuse bulge. There is uncovertebral spurring and severe facet arthrosis that leads to severe narrowing of the neural foramina and moderate canal stenosis. IMPRESSION: Advanced multilevel cervical spondylosis is worst at C3-C4 and C4-C5, where there is severe canal and foraminal stenosis and associated cord myelomalacia. EXAM TYPE: US - [id number] DOPPLER EXAMINATION: DUPLEX BILATERAL CAROTID ULTRASOUND CLINICAL INFORMATION: Right-sided weakness COMPARISON: 05/14/2009 TECHNIQUE: Duplex bilateral carotid US was performed using real-time ultrasound and Doppler techniques (integrating B-mode 2D vascular images, Doppler spectral analysis and color flow Doppler imaging). These techniques were utilized to interrogate the extracranial carotid and vertebral arteries bilaterally. The degree of stenosis is based off criteria similar to NASCET. FINDINGS: 1. On the right: Plaque is present at the carotid bifurcation extending into the right ICA. However, velocities are normal and do not suggest a stenosis of greater than 50% diameter reduction in the right ICA. The vertebral artery is patent demonstrating antegrade flow. The right ECA demonstrates a moderate stenosis with peak systolic velocity of 295 cm/s. 2. On the left: There is a hemodynamically significant stenosis correlating to 50-79% diameter reduction of the proximal internal carotid artery. A moderate amount of hyperechoic plaque is noted within the proximal internal and external carotid arteries. The peak systolic and diastolic velocities as measured within the proximal internal carotid artery equals 185 and 49 cm/s respectively. The vertebral artery is patent demonstrating antegrade flow. The left ECA demonstrates a moderate stenosis with peak systolic velocity of 270 cm/s. Since the previous study, velocities in the left ICA have increased from 129 to 185, but disease category remains the same. IMPRESSION: Hemodynamically significant stenoses consistent with a 50-79% diameter reduction of the proximal left internal carotid artery. A hemodynamically significant stenosis of greater than 50% is not present on the right. EXAM TYPE: MRI - MRI-HEAD W/O NELDA EXAMINATION: MR BRAIN WITHOUT CONTRAST CLINICAL INFORMATION: 89-year-old man with right arm and leg weakness. COMPARISON: 07/22/[address], 05/15/2009 brain MRI TECHNIQUE: MRI of the brain without contrast was obtained using routine sequences. 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 There is ex vacuo dilation of the lateral ventricles and diffuse sulcal widening. A small chronic cortical infarct is noted at the left parietal convexity. Findings have worsened considerably since the prior MRI from 2009. No focal reduced diffusion is seen to suggest acute or subacute cerebral ischemia. No intracranial mass, intracerebral edema, midline shift, or extra-axial collection is visualized. Normal arterial and venous vascular flow voids are present. Mild mucosal thickening is seen in the ethmoid air cells. IMPRESSION: No imaging evidence of acute cerebral ischemia or hemorrhage. Chronic ischemic changes and volume loss as described. 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 Discharge Disposition: SNF Discharge Instructions General Discharge Information Code Status: Do Not Resucitate/Intubat Patient's Diet: Heart healthy Patient's Activity: As tolerated Follow-Up Instructions/Appts: 1please follow-up with PCP in 1 week of discharge 2please follow-up with vascular surgeon in 1 week of discharge 3please follow-up with neuro surgeon in 1 week discharge 4please follow-up with neurologist in 2 weeks of discharge Medications at Discharge Discharge Medications: Continue taking these medications: Aspirin (Ecotrin*) 81 MG TABLET.DR 1 Tablet ORAL DAILY Comments: given 07/26/17 @ 1020 Lisinopril (Lisinopril) 2.5 MG TABLET 1 Tablet ORAL DAILY Qty = 90 Comments: given 07/26/17 @ 1020 Amlodipine Besylate (Norvasc) 10 MG TABLET 1 Tablet ORAL DAILY Comments: given 07/26/17 @ 1020 Atorvastatin Calcium (Atorvastatin Calcium) 40 MG TABLET 1 Tablet ORAL DAILY Comments: given 07/25/17 @ 1720 Cyanocobalamin (Vitamin B-12) 1,000 MCG TABLET 1 Tablet ORAL DAILY Comments: given 07/26/17 @ 1020 Garlic (Garlic Oil) 1,000 MG CAPSULE 1 Capsule ORAL DAILY Comments: not given Fish Oil/Dha/Epa (Fish Oil 1,200 MG Fish Oil) 1,200 MG-144 MG-216 MG CAPSULE 1 SGL ORAL DAILY Comments: not given Start taking the following new medications: Prednisone (Prednisone) 10 MG TABLET 1 Tablet ORAL DAILY Qty = 25 No Refills Instructions: take 5 tabs po daily on 07/27 take 4 tabs po daily on 07/28 ansd 07/29 take 3 tabs po daily on 07/30 and 07/31 take 2 tabs po daily on 08/01 and 08/02 take one tab po daily on 08/03 and 08/04 then stop Comments: given 07/26/17 @ 1020 Acetaminophen (Tylenol) 325 MG TABLET 650 Milligram ORAL EVERY SIX HOURS NEEDED as needed for PAIN SCALE 1-3 ( MILD) Qty = 60 No Refills Comments: given 07/24/17 @ 0955 Gabapentin (Gabapentin) 100 MG CAPSULE 100 Milligram ORAL Q8H Qty = 90 No Refills Comments: given 07/26/17 @ 1020 Polyethylene Glycol 3350 (Miralax) 17 GRAM/DOSE POWDER 17 Gram ORAL DAILY as needed for CONSTIPATION Days = 30 No Refills Comments: given 07/26/17 @ 1020 Sennosides/Docusate Sodium (Senna Plus Tablet) 8.6 MG-50 MG TABLET 2 Tablet ORAL DAILY as needed for CONSTIPATION Days = 30 No Refills Comments: given 07/24/17 @ 4222 Copies To: Doug MERINO,Vito Dkue; Manjit MERINO,Fransisco Mcleod; Zaina MERINO,Nelly Manzo; Lacho MERINO,Curt ; Chris MERINO,Dee Rey
[2017-07-25 08:59] LABS: GRANULOCYTE % 56.9 % (42.2-75.2); PLATELET COUNT 153 /CUMM (130-400)
[2017-07-25] MEDS ORDERED: MIRALAX119 GM PO (11:02)
[2017-07-25] MEDS ORDERED: PREDNISONE10 M2 PO (11:02)
[2017-07-25] MEDS ORDERED: GABAPENTIN100 M2 PO (11:02)
[2017-07-25] MEDS ORDERED: TYLENOL325 M1 PO (11:02)
[2017-07-25] MEDS ORDERED: SENNA PLUS TAB1 EACH PO (11:02)
--- NOTE | 2017-07-25 11:08 | Patient Discharge Instructions ---
Discharge Instructions General Discharge Information You were seen/treated for: 1. Fall 2. Right shoulder, elbow and hip pain 3. Right sided weakness 4. Left carotid artery stenosis 5. History of hypertension, hyperlipidemia and coronary artery disease 6-Cervical canal stenosis and myelomalacia Special Instructions: 1please follow-up with PCP in 1 week of discharge 2please follow-up with vascular surgeon in 1 week of discharge 3please follow-up with neuro surgeon in 1 week discharge 4please follow-up with neurologist in 2 weeks of discharge Acute Coronary Syndrome Inclusion Criteria At DC or during hospital stay patient has or had the following: ACS DIAGNOSIS No Discharge Core Measures Meds if any: Prescribed or Continued at Discharge Meds if any: NOT Prescribed or Continued at Discharge Congestive Heart Failure Inclusion Criteria At DC or during hospital stay patient has or had the following: CHF DIAGNOSIS No Discharge Core Measures Meds if any: Prescribed or Continued at Discharge Meds if any: NOT Prescribed or Continued at Discharge Cerebrovascular accident Inclusion Criteria At DC or during hospital stay patient has or had the following: CVA/TIA Diagnosis No Discharge Core Measures Meds if any: Prescribed or Continued at Discharge Meds if any: NOT Prescribed or Continued at Discharge Venous thromboembolism Inclusion Criteria VTE Diagnosis No VTE Type NONE VTE Confirmed by (Test) NONE Discharge Core Measures - Per Current guidelines, there needs to be overlap - treatment for the first 5 days of Warfarin therapy. - If discharged on Warfarin prior to 5 days of - overlap therapy, the patient will need to be - assessed for post discharge needs including - *Post discharge parental anticoagulation - *Warfarin and/or parental anticoagulation education - *Follow up date to check INR post discharge At least 5 days overlap therapy as Inpatient No Meds if any: Prescribed or Continued at Discharge Note: Overlap Therapy is Warfarin and Anticoagulant Meds if any: NOT Prescribed or Continued at Discharge
--- NOTE | 2017-07-25 12:52 | PN- Vascular Surgery ---
Surgical Brief Attending Note Brief Attending Note: VASCULAR ATTENDING NOTE: CTA results noted. Pt. with moderate left carotid stenosis. Will f/u as an outpatient for duplex surveillance. Cont. anti-platelet therapy per primary team.
--- NOTE | 2017-07-25 14:03 | PN- Neurology ---
See Addendum Subjective Subjective: 89-year-old right hand dominant man Follow-up regarding suspected cervical myelopathy, accentuated following a fall The patient is out of bed to chair His daughter is visiting. He is complaining of bilateral upper arm and forearm pain. Hospitalist team is starting gabapentin Objective Vital Signs and I&Os Vital Signs Date Time Temp Pulse Resp B/P B/P Pulse O2 O2 Flow FiO2 Mean Ox Delivery Rate 07/25 1008 132/74 07/25 1008 132/74 07/25 0800 95 Nasal 2.0L Cannula 07/25 0630 97.2 65 18 136/70 97 07/25 0000 Nasal 2.0L Cannula 07/24 2228 98.0 59 18 130/62 95 07/24 1600 Room Air 07/24 1418 98.8 69 18 108/60 96 Room Air Intake & Output 07/25 1600 07/25 0800 07/25 0000 07/24 1600 07/24 0800 07/24 0000 Intake Total 438 480 50 120 Output Total 200 200 350 450 Balance -200 -200 438 480 -300 -330 Intake, Oral 438 480 50 120 Number 0 0 Bowel Movements Output, Urine 200 200 350 450 Patient 150 lb Weight Weight Bed scale Measurement Method Physical Exam: Head and face with abrasions Extremities with arthritic changes in the hands Neurologic exam: Awake, alert, oriented, with fluent speech Full extraocular motility Visual soler full to confrontation Symmetric facial movements Midline tongue protrusion Motor: Tetraparesis worse on the right than the left Worse in the upper extremities and the lower extremities, distal worse than proximal Unable to activate intrinsic hand muscles on the right Long finger flexors intact Impaired rapid alternating and fine motor movements Current Medications: Current Medications Sig/Dmitry Start time Last Medication Dose Route Stop Time Status Admin Acetaminophen 650 MG Q6P PRN 07/22 2345 AC 07/24 PO 0954 Amlodipine Besylate 10 MG DAILY 07/24 1000 AC 07/25 PO 1008 Aspirin Buffered 81 MG DAILY 07/24 1000 AC 07/25 PO 1008 Atorvastatin Calcium 40 MG 1700 07/24 1700 AC PO Cholecalciferol 2,000 IU DAILY 07/24 1012 AC 07/25 PO 1008 Cyanocobalamin 1,000 MCG DAILY 07/24 1000 AC 07/25 PO 1008 Enoxaparin Sodium 40 MG DAILY 07/23 1000 AC 07/25 SC 1008 Folic Acid 1 MG DAILY 07/23 1000 AC 07/25 PO 1008 Gabapentin 100 MG Q8H 07/25 0950 AC 07/25 PO 1019 Lisinopril 2.5 MG DAILY 07/24 1000 AC 07/25 PO 1008 Melatonin 5 MG ONCE ONE 07/24 2245 DC 07/24 PO 07/24 2246 2234 Multivitamins 1 TAB DAILY 07/23 1000 AC 07/25 PO 1008 Patient Medication 1 ED ONE ONE 07/24 1700 DC 07/24 Teaching ED 07/24 1701 1700 Polyethylene Glycol 17 GM DAILY 07/24 1201 AC 07/25 PO 1008 Polyethylene Glycol 17 GM DAILY PRN 07/24 1200 AC PO Prednisone 10 MG DAILY 08/03 1000 AC PO 08/05 0959 Prednisone 20 MG DAILY 08/01 1000 AC PO 08/03 0959 Prednisone 30 MG DAILY 07/30 1000 AC PO 08/01 0959 Prednisone 40 MG DAILY 07/28 1000 AC PO 07/30 0959 Prednisone 50 MG DAILY 07/26 1000 CAN PO 08/05 0959 Prednisone 50 MG DAILY 07/26 1000 AC PO 07/28 0959 Prednisone 60 MG ONCE ONE 07/25 1045 DC 07/25 PO 07/25 1046 1327 Senna/Docusate Sodium 2 TAB DAILY PRN 07/24 1200 AC 07/24 PO 1410 Thiamine HCl 100 MG DAILY 07/23 1000 AC 07/25 PO 1008 Results Last 24 Hours of Lab Results: Laboratory Tests 07/26 619 Chemistry Sodium (137 - 145 mmol/L) 140 Potassium (3.5 - 5.1 mmol/L) 3.9 Chloride (98 - 107 mmol/L) 108 H Carbon Dioxide (22 - 30 mmol/L) 23 Anion Gap (5 - 16) 9 BUN (9 - 20 mg/dL) 29 H Creatinine (0.7 - 1.2 mg/dL) 0.8 Estimated GFR (>60 ml/min) > 60 BUN/Creatinine Ratio (7 - 25 %) 36.3 H Hematology CBC w Diff NO MAN DIFF REQ WBC (4.8 - 10.8 /CUMM) 8.8 RBC (4.70 - 6.10 /CUMM) 4.49 L Hgb (14.0 - 18.0 G/DL) 13.8 L Hct (42 - 52 %) 41.0 L MCV (80.0 - 94.0 FL) 91.5 MCH (27.0 - 31.0 PG) 30.9 MCHC (33.0 - 37.0 G/DL) 33.7 RDW (11.5 - 14.5 %) 13.7 Plt Count (130 - 400 /CUMM) 153 MPV (7.4 - 10.4 FL) 8.4 Gran % (42.2 - 75.2 %) 56.9 Lymphocytes % (20.5 - 51.1 %) 29.4 Monocytes % (1.7 - 9.3 %) 10.0 H Eosinophils % (0 - 5 %) 3.3 Basophils % (0.0 - 2.0 %) 0.4 Absolute Granulocytes (1.4 - 6.5 /CUMM) 5.0 Absolute Lymphocytes (1.2 - 3.4 /CUMM) 2.6 Absolute Monocytes (0.10 - 0.60 /CUMM) 0.9 H Absolute Eosinophils (0.0 - 0.7 /CUMM) 0.3 Absolute Basophils (0.0 - 0.2 /CUMM) 0 Recent Imaging Studies: Brain MRI negative for acute stroke CTA of the neck shows 60-70% left internal carotid artery stenosis, less than 50 % right internal carotid artery stenosis Moderate to severe cervical spondylosis with central stenosis at C34 and 45 Assessment/Plan Assessment: Cervical spondylotic myelopathy with clinical evidence of a 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
[2017-07-25 14:18] VITALS: BP 110/52
--- NOTE | 2017-07-25 18:04 | MRI REPORT ---
EXAMINATION: MR CERVICAL SPINE WITHOUT CONTRAST CLINICAL INFORMATION: 89-year-old man with right arm weakness. COMPARISON: 05/15/2009 MRI, 07/22/2017 CT TECHNIQUE: MRI of the cervical spine without contrast was obtained using routine sequences. FINDINGS: There is persistent loss of the normal cervical lordosis with slight anterolisthesis of C3 on C4 and grade 1 anterolisthesis of C7 on T1. Vertebral bodies are normal in height. Degenerative endplate marrow signal and associated contour changes are seen at all levels and are probably worst at C3-C4. There is mild loss of normal disc height at most levels with some sparing of C2-C3 and C4-C5. The craniocervical junction is normal in appearance. 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 The right lobe of the thyroid gland is asymmetrically enlarged. C2-C3: Disc osteophyte complex slightly effaces the ventral CSF space. The canal remains patent. Facet arthrosis more than uncovertebral spurring leads to mild narrowing of the neural foramina. C3-C4: Disc osteophyte complex and ligamentous hypertrophy lead to severe canal stenosis with deformation of the normal cord contours. Uncovertebral spurring and facet arthrosis lead to severe narrowing of the neural foramina. Bone marrow edema centered around the right facet articulation is presumably reactive. C4-C5: Disc osteophyte complex flattens the ventral cord contour and leads to severe canal stenosis. Uncovertebral spurring and facet arthrosis both contribute to severe narrowing of the neural foramina, left greater than right. C5-C6: Disc osteophyte complex effaces the ventral CSF space and leads to mild canal stenosis. Uncovertebral hypertrophy and facet arthrosis contribute to moderate narrowing of the neural foramina. C6-C7: Disc osteophyte complex slightly effaces the ventral CSF space. The canal remains patent. Uncovertebral hypertrophy and facet arthrosis both contribute to moderate narrowing of the neural foramina. C7-T1: The disc is uncovered with a superimposed diffuse bulge. There is uncovertebral spurring and severe facet arthrosis that leads to severe narrowing of the neural foramina and moderate canal stenosis. IMPRESSION: Advanced multilevel cervical spondylosis is worst at C3-C4 and C4-C5, where there is severe canal and foraminal stenosis and associated cord myelomalacia.
[2017-07-25 22:52] VITALS: BP 130/66
--- NOTE | 2017-07-26 01:15 | Cons- Neurosurgical ---
Pillo Nolen 07/26/17 0102: General Information and HPI Consulting Request Date of Consult: 07/26/17 Requested By: Onelia MERINO,Mark Tolentino Reason for Consult: Right upper extremity weakness status post fall 5 days ago and current MRI demonstrating cervical stenosis with cord signal Source of Information: patient, old records, MRI Exam Limitations: no limitations History of Present Illness: Mr. Carter is an 89-year-old gentleman with past medical history significant for hypertension, hyperlipidemia, osteoarthritis, coronary artery disease status post CABG 5 and stent placement and CVA(left thalamic stroke in 2008) presents with right sided weakness after he had a fall around 7 PM on Sunday. According to the patient, he was in his usual state of health 2 weeks ago when he started feeling imbalance/unsteady on his feet, had a fall 1 week ago and went down on his face, did not seek any medical attention at that time. Today around 7 PM, he got up from the chair when his legs gave away and he fell on the floor on his right side and hit his head with the wall. He called his who was in the kitchen, who called the son and he was brought in to the hospital. Denies any lightheadedness/dizziness,loss of confusion, chest pain, palpitations , shortness of breath, headache, slurring of speech, facial droop, confusion before or after the fall, or visual changes. Also denies any recent illness, diarrhea, recent change in medications, or decreased by mouth intake. Patient's son states that he has osteoarthritis in both his knees , right is worse than the left, and he is not able to bend his knee completely at baseline but it's worse after the fall. Allergies/Medications Allergies: Coded Allergies: No Known Allergies (06/09/16) Home Med List: Acetaminophen (Tylenol) 325 MG TABLET 650 MG PO Q6P PRN PAIN SCALE 1-3 (MILD) Amlodipine Besylate (Norvasc) 10 MG TABLET 1 TAB PO DAILY BP (Reported) Aspirin (Ecotrin*) 81 MG TABLET.DR 1 TAB PO DAILY HEART/BLOOD (Reported) Atorvastatin Calcium 40 MG TABLET 1 TAB PO DAILY CHOLESTEROL (Reported) Cyanocobalamin (Vitamin B-12) 1,000 MCG TABLET 1 TAB PO DAILY VITAMIN SUPPORT (Reported) Fish Oil/Dha/Epa (Fish Oil 1,200 MG Fish Oil) 1,200 MG-144 MG-216 MG CAPSULE 1 SGL PO DAILY HEART HEALTH (Reported) Gabapentin 100 MG CAPSULE 100 MG PO Q8H pain Garlic (Garlic Oil) 1,000 MG CAPSULE 1 CAP PO DAILY HEART HEALTH (Reported) Lisinopril 2.5 MG TABLET 1 TAB PO DAILY BP (Reported) Polyethylene Glycol 3350 (Miralax) 17 GRAM/DOSE POWDER 17 GM PO DAILY PRN CONSTIPATION Prednisone 10 MG TABLET 1 TAB PO DAILY spinal cord compression take 5 tabs po daily on 07/26 and 07/27 take 4 tabs po daily on 07/28 ansd 07/29 take 3 tabs po daily on 07/30 and 07/31 take 2 tabs po daily on 08/01 and 08/02 take one tab po daily on 08/03 and 08/04 then stop Sennosides/Docusate Sodium (Senna Plus Tablet) 8.6 MG-50 MG TABLET 2 TAB PO DAILY PRN CONSTIPATION Past History Medical History Blood Transfusion Hx: No Neurological: NONE EENT: NONE Cardiovascular: CAD, hypertension, hyperlipidemia, CABG Respiratory: NONE Gastrointestinal: constipation Hepatic: NONE Renal: nephrolithiasis Musculoskeletal: osteoarthritis Psychiatric: NONE Endocrine: NONE Blood Disorders: NONE Cancer(s): NONE SPA MANAGER/ESTHETICIAN/Reproductive: NONE Surgical History Pertinent Surgical History: CABG x 5, appendectomy Psychosocial History Where Do You Live? Home Who Do You Live With? spouse Smoking Status: Former Smoker ETOH Use: occasional use (TONIGHT) Illicit Drug Use: denies illicit drug use Functional Ability Ambulation: cane, walker Exam & Diagnostic Data Vital Signs and I&O Vital Signs Date Time Temp Pulse Resp B/P B/P Pulse O2 O2 Flow FiO2 Mean Ox Delivery Rate 07/25 2252 98.7 69 24 130/66 93 07/25 1418 98.2 66 20 110/52 95 Room Air 07/25 1008 132/74 07/25 1008 132/74 07/25 0800 95 Nasal 2.0L Cannula 07/25 0630 97.2 65 18 136/70 97 Intake & Output 07/26 0800 07/26 0000 07/25 1600 07/25 0800 07/25 0000 07/24 1600 Intake Total 200 438 480 Output Total 200 200 Balance 200 -200 -200 438 480 Intake, Oral 200 438 480 Number 0 Bowel Movements Output, Urine 200 200 Patient 149 lb 150 lb Weight Weight Bed scale Measurement Method Physical Exam General Appearance: alert, awake, anxious, mild distress Head: evidence of injury, contusions, ecchymosis Eyes: Bilateral: PERRL. Respiratory: no respiratory distress Cardiovascular: regular rate/rhythm Gastrointestinal: normal bowel sounds, soft, non-tender Extremities: bilateral upper extremities warm to palpation him a 2/5 right deltoid, biceps, triceps, 1/5 right wrist extension overall right decreased sensation to tactile stimuli compared to left Last 24 Hours of Labs: Laboratory Tests 07/25 0620 Chemistry Sodium (137 - 145 mmol/L) 140 Potassium (3.5 - 5.1 mmol/L) 3.9 Chloride (98 - 107 mmol/L) 108 H Carbon Dioxide (22 - 30 mmol/L) 23 Anion Gap (5 - 16) 9 BUN (9 - 20 mg/dL) 29 H Creatinine (0.7 - 1.2 mg/dL) 0.8 Estimated GFR (>60 ml/min) > 60 BUN/Creatinine Ratio (7 - 25 %) 36.3 H Hematology CBC w Diff NO MAN DIFF REQ WBC (4.8 - 10.8 /CUMM) 8.8 RBC (4.70 - 6.10 /CUMM) 4.49 L Hgb (14.0 - 18.0 G/DL) 13.8 L Hct (42 - 52 %) 41.0 L MCV (80.0 - 94.0 FL) 91.5 MCH (27.0 - 31.0 PG) 30.9 MCHC (33.0 - 37.0 G/DL) 33.7 RDW (11.5 - 14.5 %) 13.7 Plt Count (130 - 400 /CUMM) 153 MPV (7.4 - 10.4 FL) 8.4 Gran % (42.2 - 75.2 %) 56.9 Lymphocytes % (20.5 - 51.1 %) 29.4 Monocytes % (1.7 - 9.3 %) 10.0 H Eosinophils % (0 - 5 %) 3.3 Basophils % (0.0 - 2.0 %) 0.4 Absolute Granulocytes (1.4 - 6.5 /CUMM) 5.0 Absolute Lymphocytes (1.2 - 3.4 /CUMM) 2.6 Absolute Monocytes (0.10 - 0.60 /CUMM) 0.9 H Absolute Eosinophils (0.0 - 0.7 /CUMM) 0.3 Absolute Basophils (0.0 - 0.2 /CUMM) 0 Imaging Results: SERVICE DATE: 07/25/17 EXAM TYPE: MRI - MRI-CERVICAL SPINE EXAMINATION: MR CERVICAL SPINE WITHOUT CONTRAST CLINICAL INFORMATION: 89-year-old man with right arm weakness. COMPARISON: 05/15/2009 MRI, 07/22/2017 CT TECHNIQUE: MRI of the cervical spine without contrast was obtained using routine sequences. FINDINGS: There is persistent loss of the normal cervical lordosis with slight anterolisthesis of C3 on C4 and grade 1 anterolisthesis of C7 on T1. Vertebral bodies are normal in height. Degenerative endplate marrow signal and associated contour changes are seen at all levels and are probably worst at C3-C4. There is mild loss of normal disc height at most levels with some sparing of C2-C3 and C4-C5. The craniocervical junction is normal in appearance. 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 The right lobe of the thyroid gland is asymmetrically enlarged. C2-C3: Disc osteophyte complex slightly effaces the ventral CSF space. The canal remains patent. Facet arthrosis more than uncovertebral spurring leads to mild narrowing of the neural foramina. C3-C4: Disc osteophyte complex and ligamentous hypertrophy lead to severe canal stenosis with deformation of the normal cord contours. Uncovertebral spurring and facet arthrosis lead to severe narrowing of the neural foramina. Bone marrow edema centered around the right facet articulation is presumably reactive. C4-C5: Disc osteophyte complex flattens the ventral cord contour and leads to severe canal stenosis. Uncovertebral spurring and facet arthrosis both contribute to severe narrowing of the neural foramina, left greater than right. C5-C6: Disc osteophyte complex effaces the ventral CSF space and leads to mild canal stenosis. Uncovertebral hypertrophy and facet arthrosis contribute to moderate narrowing of the neural foramina. C6-C7: Disc osteophyte complex slightly effaces the ventral CSF space. The canal remains patent. Uncovertebral hypertrophy and facet arthrosis both contribute to moderate narrowing of the neural foramina. C7-T1: The disc is uncovered with a superimposed diffuse bulge. There is uncovertebral spurring and severe facet arthrosis that leads to severe narrowing of the neural foramina and moderate canal stenosis. IMPRESSION: Advanced multilevel cervical spondylosis is worst at C3-C4 and C4-C5, where there is severe canal and foraminal stenosis and associated cord myelomalacia. DICTATED BY: Farhana Motta MD DATE/TIME DICTATED:07/25/171754 CLINICAL SUPPORT NURSE:LUISA DATE/TIME TRANSCRIBED:07/25/171754 Assessment/Plan Assessment/Plan Mr. Carter is 89-year-old male post-mechanical fall at home with MRI taken today demonstrating severe stenosis with signal consistent with cord compression, demonstrating increased right-sided upper extremity weakness. Currently been started on tapered steroids with gabapentin at the request of Dr. Moreira,. And no appreciable difference with the initiation of this care however is early in stages. She is whether he will benefit from conservative treatment or is surgical intervention consisting with laminectomy, possible fusion. Dr. Moreira will evaluate the patient in the a.m. and discuss these options with him to determine what will be the best course of action. Now he should continue with his tapered steroids, gabapentin, soft collar for comfort. Consult Acknowledgment - Thank you for your consult request. Nelly Mahajan MD 07/26/17 0802: Assessment/Plan Consult Acknowledgment - Thank you for your consult request. Attending MD Review Statement Attending Statement Attending MD Statement: discuss w/resident/PA/STUDENT ASSISTANT, reviewed images
[2017-07-26 06:56] VITALS: BP 130/60
--- NOTE | 2017-07-26 07:59 | PN- Neurosurgical ---
Surgical Brief Attending Note Brief Attending Note: Pt seen and examined this am. History reviewed with pt and his son who was present. Briefly, this is a 89yo male with multiple medical comorbidities with 2wk h/o progressive weakness, numbness right more than left and then a mechanical fall at home on Sat with abrupt worsening presents with imaging findings c/w high grade spinal stenosis C3-5 with cord signal abnormality c/w myelomalacia. 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 He has spasticity right side more than left, mod hyperreflexia. Hand function also impacted by advanced OA of the joints. I had a long discussion with pt and his son regarding the imaging findings and the options for managment which can include surgical decopression with laminectomy +/- fusion C3-5 vs conservative trial with or without surgery in a more delayed fashion. His advanced age and multiple medical issues place him at higher than ave surgical risk. The risks and benefits of each of these approaches were discussed at length, anticipated hospital stay and postop recovery, and the goals of treatment were reviewed. They understand that surgery can only be predicted to stabilize neurological function and can not guarantee neruologic recovery. We discussed the risks of deferring surgery including the potential for progressive spinal cord dysfunction and a worsening clinical neurologic picture including paralysis. If pt were to elect to defer surgery at this time, he should complete oral steroid taper over 7-10 days, continue cervical immobilization, maximize rehab, and be followed as an outpt. If he were to continue to decline despite these measures, he would need to reconsider surgical intervention. I have made myself available to the pt and his family, left contact info if they have additional questions or concerns. If surgery is to occur during this admission, he will need medical and cardiac clearance. Appreciate this consult. Call with questions.
--- NOTE | 2017-07-26 10:28 | PN- Housestaff ---
Doc MERINO,Celi 07/26/17 1028: Subjective Follow-up For: 1. Fall 2. Right shoulder, elbow and hip pain 3. Right sided weakness 4. Left carotid artery stenosis 5. History of hypertension, hyperlipidemia and coronary artery disease 6. Alcohol use; Patient takes 1 shot of Vodka daily Seven. cervical canal stenosis Tele-Events Since Last Visit: Normal sinus rhythm, 6872, QRS 0.1, CA 0.2 no overnight events Subjective: She was seen and examined at bedside, continues to complain of pain and weakness of the right arm. In addition he complains of constipation Review of Systems Constitutional: Reports: see HPI. Objective Last 24 Hrs of Vital Signs/I&O Vital Signs Date Time Temp Pulse Resp B/P B/P Pulse O2 O2 Flow FiO2 Mean Ox Delivery Rate 07/26 1349 98.7 71 20 140/70 07/26 1303 Room Air 07/26 1018 140/70 07/26 1018 140/70 07/26 0656 98.7 71 20 130/60 96 Room Air 07/26 0000 Nasal 2.0L Cannula 07/25 2252 98.7 69 24 130/66 93 Intake & Output 07/26 1600 07/26 0800 07/26 0000 Intake Total 600 120 200 Output Total 100 Balance 600 20 200 Intake, Oral 600 120 200 Number 1 Bowel Movements Output, Urine 100 Patient 149 lb Weight Physical Exam General Appearance: Alert, Oriented X3, Cooperative, No Acute Distress HEENT: Atraumatic, PERRLA, EOMI, Mucous Membr. moist/pink Neck: Supple, No JVD Cardiovascular: Normal S1, Normal S2, No Murmurs Lungs: Clear to Auscultation Abdomen: Normal Bowel Sounds, Soft, No Tenderness Neurological: Normal Speech Extremities: No Clubbing, No Cyanosis, No Edema Assessment/Plan Assessment: Mr. Carter is an 89-year-old gentleman with past medical history significant for hypertension, hyperlipidemia, osteoarthritis, coronary artery disease status post CABG 5 and stent placement and CVA(left thalamic stroke in 2008) presents with right weakness after he had a fall around 7 PM this evening. MRI brain on 07/25/17: Advanced multilevel cervical spondylosis is worst at C3-C4 and C4-C5, where there is severe canal and foraminal stenosis and associated cord myelomalacia. Problem List 1. Fall 2. Right shoulder, elbow and hip pain 3. Right sided weakness 4. Left carotid artery stenosis 5. History of hypertension, hyperlipidemia and coronary artery disease 6. 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 -Continue lisinopril 2.5 mg daily - Continue aspirin and atorvastatin. - MRI of the brain was negative for any acute stroke -MRI of the cervical spine show it spinal canal stenosis and myelomalacia - Neurology recommendations appreciated -Vascular recommendation appreciate -Neurosurgical consult appreciated -Continue prednisone taper as per discussion with Dr Jon -Continue gabapentin 100 mg 3 times daily -Soft cervical collar - Troponins and EKG 3 ruled out ACS - orthostatic vitals was negative - PT/OT evaluation - Pain managment - continue CIWA protocol given recent alcohol use. Patient is a stable to be discharged to [facility] today DVT Prophylaxis; subcutaneous heparin Problem List: 1. Carotid artery disease 2. Cervical stenosis of spinal canal 3. Leg weakness 4. Arm weakness Pain Ratin Pain Location: N/A Pain Goal: Remain pain free (P) Pain Plan: PATHWAY Tomorrow's Labs & Rationales: N/A Mark Rousseau 07/26/17 1433: Attending MD Review Statement Attending Statement Attending MD Statement: examined this patient, discuss w/resident/PA/ASSEMBLY LINE LEADER, agreed w/resident/PA/ASSEMBLY LINE LEADER, discussed with family, reviewed EMR data (avail), discussed with nursing, discussed with case mgmt Attending Assessment/Plan: D/w pts son the care plan. will d/w case managemetn about miguelina vs meza wickie. Pt prefers meza wickie though neurology thinks miguelina will be better for pt. d/w pts family the NSG recommendations and care plan.
[2017-07-26] MEDS ORDERED: PREDNISONE10 M2 PO (10:49)
[2017-07-26 13:49] VITALS: BP 140/70
--- NOTE | 2017-07-26 14:11 | PN- Neurology ---
Subjective Subjective: Weakness unchanged Objective Vital Signs and I&Os Vital Signs Date Time Temp Pulse Resp B/P B/P Pulse O2 O2 Flow FiO2 Mean Ox Delivery Rate 07/26 1349 98.7 71 20 140/70 07/26 1303 Room Air 07/26 1018 140/70 07/26 1018 140/70 07/26 0656 98.7 71 20 130/60 96 Room Air 07/26 0000 Nasal 2.0L Cannula 07/25 2252 98.7 69 24 130/66 93 07/25 1418 98.2 66 20 110/52 95 Room Air Intake & Output 07/26 1600 07/26 0800 07/26 0000 07/25 1600 07/25 0800 07/25 0000 Intake Total 120 200 438 Output Total 100 200 200 Balance 20 200 -200 -200 438 Intake, Oral 120 200 438 Output, Urine 100 200 200 Patient 149 lb 150 lb Weight Weight Bed scale Measurement Method Awake and alert. Speech fluent. In no acute distress. The patient is quadriparetic, right greater than left. Deep tendon reflexes are brisk. Cervical MRI shows multilevel DJD with cervical stenosis and myelomalacia at C3- 4 Current Medications: Current Medications Sig/Dmitry Start time Last Medication Dose Route Stop Time Status Admin Acetaminophen 650 MG Q6P PRN 07/22 2345 AC 07/24 PO 0954 Amlodipine Besylate 10 MG DAILY 07/24 1000 AC 07/26 PO 1018 Aspirin Buffered 81 MG DAILY 07/24 1000 AC 07/26 PO 1018 Atorvastatin Calcium 40 MG 1700 07/24 1700 AC 07/25 PO 1722 Bisacodyl 10 MG ONCE ONE 07/26 1100 DC 07/26 HI 07/26 1101 1152 Cholecalciferol 2,000 IU DAILY 07/24 1012 AC 07/26 PO 1018 Cyanocobalamin 1,000 MCG DAILY 07/24 1000 AC 07/26 PO 1018 Enoxaparin Sodium 40 MG DAILY 07/23 1000 AC 07/26 SC 1018 Folic Acid 1 MG DAILY 07/23 1000 AC 07/26 PO 1018 Gabapentin 100 MG Q8H 07/25 0950 AC 07/26 PO 1018 Lisinopril 2.5 MG DAILY 07/24 1000 AC 07/26 PO 1018 Multivitamins 1 TAB DAILY 07/23 1000 AC 07/26 PO 1018 Patient Medication 1 ED ONE ONE 07/26 1300 DC Teaching ED 07/26 1301 Polyethylene Glycol 17 GM DAILY 07/24 1201 AC 07/26 PO 1018 Polyethylene Glycol 17 GM DAILY PRN 07/24 1200 AC PO Prednisone 10 MG DAILY 08/03 1000 AC PO 08/05 0959 Prednisone 20 MG DAILY 08/01 1000 AC PO 08/03 0959 Prednisone 30 MG DAILY 07/30 1000 AC PO 08/01 0959 Prednisone 40 MG DAILY 07/28 1000 AC PO 07/30 0959 Prednisone 50 MG DAILY 07/26 1000 AC 07/26 PO 07/28 0959 1018 Senna/Docusate Sodium 2 TAB DAILY PRN 07/24 1200 AC 07/24 PO 1410 Thiamine HCl 100 MG DAILY 07/23 1000 AC 07/26 PO 1018 Assessment/Plan Assessment: 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 Evidence of myelomalacia on MRI might reflect minimal response to aggressive therapy as the cord is already damaged. However, the point is academic as the patient has refused surgery. Do not believe the patient will benefit from long-term corticosteroid use and would taper his prednisone over the course of several days. Plan: Plan is to transfer the patient to a facility where rehabilitation may be performed to optimize his strength and potential for locomotion.
== END 2017-07-26 15:05 | DRG 552 ==
LOC: ERH 20:02 → ERHI 22:06 → 1NO 22:06 → ENRESERV 23:17 → 1NO 07-23 00:57 → ENPENDDIS 07-26 11:20 → 1NO 07-26 15:05
PROVIDERS: Emergency Medicine; Hospitalist; Student in an Organized Health Care Education/Training Program
DX: M47.12 Other spondylosis with myelopathy, cervical region (principal); G95.89 Other specified diseases of spinal cord; I69.354 Hemiplegia and hemiparesis following cerebral infarction affecting left non-dominant side; I65.22 Occlusion and stenosis of left carotid artery; R26.2 Difficulty in walking, not elsewhere classified; Z95.1 Presence of aortocoronary bypass graft; I10 Essential (primary) hypertension; W18.30XA Fall on same level, unspecified, initial encounter; Z91.81 History of falling; Y92.009 Unspecified place in unspecified non-institutional (private) residence as the place of occurrence of the external cause; I25.10 Atherosclerotic heart disease of native coronary artery without angina pectoris; Z72.89 Other problems related to lifestyle; M62.81 Muscle weakness (generalized); E78.5 Hyperlipidemia, unspecified; Z98.61 Coronary angioplasty status; M19.91 Primary osteoarthritis, unspecified site; Z79.82 Long term (current) use of aspirin; K59.00 Constipation, unspecified; Z87.442 Personal history of urinary calculi; Z87.891 Personal history of nicotine dependence; R26.9 Unspecified abnormalities of gait and mobility; Z66 Do not resuscitate
CPT/HCPCS: 1NSP; 70551; 72141; 36415; 36592; 71045; 73030-RT; 73080-RT; 73502-RT; 81001; 82436; 90714; 93005; 93010; 93306; 97110-GO; 97112-GO; 97140-GO; 97161-GP; 97167-GO; 97530-GO; 97530-GP; G0480; J1650; J3490

== ENCOUNTER 2017-07-31 12:06 | Emergency (ER) | payer OTHER ==
[~2017-07-31] VITALS: Ht 172.7 cm; Wt 68.0 kg
[~2017-07-31 12:06] MED LIST changes: +FISH OIL 1,2001 EACH PO; +GABAPENTIN100 M2 PO; +GARLIC OIL1000 M1 PO; +MIRALAX119 GM PO; +PREDNISONE10 M2 PO; +SENNA PLUS TAB1 EACH PO; +TYLENOL325 M1 PO; +VITAMIN B-121000 MC3 PO
[2017-07-31] MEDS ORDERED: PREDNISONE10 M2 PO (12:27)
[2017-07-31] MEDS ORDERED: SENNA8.6 M3 PO (12:28)
--- NOTE | 2017-07-31 12:42 | ED GENERAL ADULT ---
See Addendum History of Present Illness General Chief Complaint: Altered Mental Status Stated Complaint: BIBA FOR AMS Source: patient, family, old records Exam Limitations: no limitations Vital Signs & Intake/Output Vital Signs & Intake/Output Vital Signs Date Time Temp Pulse Resp B/P B/P Pulse O2 O2 Flow FiO2 Mean Ox Delivery Rate 07/31 1636 97.6 85 24 109/58 92 Nasal 4.0L Cannula 07/31 1330 88 110/62 07/31 1245 80 95/44 07/31 1230 91 Nasal 4.0L Cannula 07/31 1209 96.5 82 20 93/82 94 Nasal 2.0L Cannula ED Intake and Output 08/01 0000 07/31 1200 Intake Total Output Total 1500 Balance -1500 Output, Urine 1500 Patient 150 lb Weight Weight Estimated Measurement Method Allergies Coded Allergies: No Known Allergies (06/09/16) Reconcile Medications Amlodipine Besylate (Norvasc) 10 MG TABLET 1 TAB PO DAILY BP (Reported) Aspirin (Ecotrin*) 81 MG TABLET.DR 1 TAB PO DAILY HEART/BLOOD (Reported) Atorvastatin Calcium 40 MG TABLET 1 TAB PO DAILY CHOLESTEROL (Reported) Cyanocobalamin (Vitamin B-12) 1,000 MCG TABLET 1 TAB PO DAILY VITAMIN SUPPORT (Reported) Gabapentin 100 MG CAPSULE 100 MG PO Q8H pain Lisinopril 2.5 MG TABLET 1 TAB PO DAILY BP (Reported) Polyethylene Glycol 3350 (Miralax) 17 GRAM/DOSE POWDER 17 GM PO DAILY PRN CONSTIPATION Prednisone 10 MG TABLET 3 TAB PO DAILY STEROID (Reported) Sennosides (Senna) 8.6 MG TABLET 2 TAB PO QPM CONSTIPATION (Reported) Sennosides/Docusate Sodium (Senna Plus Tablet) 8.6 MG-50 MG TABLET 2 TAB PO DAILY PRN CONSTIPATION Triage Note: PT BIBA FROM [facility], PT WAS DCD FROM [place] LAST WEEK S/P FALL AND AT [facility] FOR REHAB. PT BROUGHT IN C/O INCREASE CONFUSION, PT IS AOX3 AT BASELINE BUT PER FAMILY HE SEEEMS OFF. PT HAS LOW GRADE FEVER, +N, +V PER F. EMS STATED THAT BP WAS 70/DOPPLER AND PRE HOSP #20 LINE PLACED IN LEFT HAND WITH NS BOLUS. PT REPEAT WAS 90/DOP. PT BP ON ARRIVAL WAS 94/55 HEART RATE 84 (BBB) Triage Nurses Notes Reviewed? yes Onset: Abrupt Duration: day(s): (1-2), changing over time, continues in ED, getting worse Timing: single episode today Injury Environment: ECF Severity: moderate, severe No Modifying Factors: none Associated Symptoms: cough HPI: 89-year-old male past medical history of hypertension, hyperlipidemia, osteoarthritis, coronary artery disease brought in by a minutes from ECF for evaluation of altered mental status. Family reports that they received a call from the ECF setting of the patient had episodes of nausea vomiting and diarrhea as well as abdominal pain and low-grade fever this morning. When they arrived they felt like the patient was more confused than usual he did not know where he was initially. Patient is also been having a cough productive of yellow sputum and and lower abdominal pain. No melena or blood in the stool. He does not take blood thinners. No chest pain or shortness of breath. No rashes. No recent surgery however patient was recently hospitalized after a fall which is why he was in the ECF. (Nj Penaloza) Past History Travel History Traveled to [place] past 21 day No Medical History Any Pertinent Medical History? see below for history Neurological: NONE EENT: NONE Cardiovascular: CAD, hypertension, hyperlipidemia, CABG Respiratory: NONE Gastrointestinal: constipation Hepatic: NONE Renal: nephrolithiasis Musculoskeletal: osteoarthritis Psychiatric: NONE Endocrine: NONE Blood Disorders: NONE Cancer(s): NONE PREPRESS SUPERVISOR/Reproductive: NONE History of MRSA: No History of VRE: No History of CDIFF: No Influenza Vaccine: 02/13/17 Tetanus Vaccine: 07/22/17 Surgical History Surgical History: CABG x 5, appendectomy Psychosocial History Who do you live with Spouse What is your primary language Chinese Family History Hx Contributory? No (Nj Penaloza) Review of Systems Review of Systems Constitutional: Reports: fever, weakness. EENTM: Reports: no symptoms. Respiratory: Reports: see HPI, cough, sputum production. Cardiovascular: Reports: no symptoms. GI: Reports: see HPI, abdominal pain, bloating, diarrhea, nausea, vomiting. Genitourinary: Reports: no symptoms. Musculoskeletal: Reports: no symptoms. Skin: Reports: no symptoms. Neurological/Psychological: Reports: no symptoms. Hematologic/Endocrine: Reports: no symptoms. Immunologic/Allergic: Reports: no symptoms. All Other Systems: Reviewed and Negative (Nj Penaloza) Physical Exam Physical Exam General Appearance: well developed/nourished, no apparent distress, alert, awake Head: atraumatic, normal appearance Eyes: Bilateral: normal appearance, PERRL, EOMI. Ears, Nose, Throat: normal pharynx, normal ENT inspection, hearing grossly normal Neck: normal inspection, supple, full range of motion Respiratory: chest non-tender, no respiratory distress, crackles (BILATERAL) Cardiovascular: regular rate/rhythm, normal peripheral pulses Peripheral Pulses: 2+ radial (R), 2+ radial (L) Gastrointestinal: normal bowel sounds, soft, non-tender, no organomegaly Back: normal inspection, normal range of motion, no vertebral tenderness Extremities: normal capillary refill, THERE IS BILATERAL 2+ PITTING EDEMA IN THE LOWER EXTREMITIES NO ERYTHEMA OR DISCHARGE STRENGTH IS 4-5 IN BILATERAL UPPER EXTREMITIES 3 OUT OF 5 IN THE BILATERAL LOWER EXTREMITIES NO FOCAL DEFICIT Neurologic/Psych: no motor/sensory deficits, awake, alert, oriented x 3, normal gait Skin: intact, normal color, warm/dry Lymphatic: no anterior cervical anju Core Measures ACS in differential dx? Yes CVA/TIA Diagnosis: No Sepsis Present: Yes Sepsis Focused Exam Completed? Yes (Vito MEDEIROS,Nj) Progress Differential Diagnoses I considered the following diagnoses in my evaluation of the patient: [Sepsis, septic shock, small bowel section, diverticulitis, colitis, gastroenteritis, pneumonia, PE, acute coronary syndrome, electrolyte abnormality] Plan of Care: Orders Procedure Date/time Status ARTERIAL BLOOD GAS (GEN) 07/31 1726 Active Haley, Insertion/Removal/Asses 07/31 1441 Active CULTURE,URINE 07/31 1441 Active Straight Cath 07/31 1439 Active Add-on Test (ER Only) 07/31 1250 Active EKG 07/31 1244 Active RAPID VIRAL INFLUENZA A 07/31 1242 Complete Add-on Test (ER Only) 07/31 1241 Active BLOOD CULTURE 07/31 1241 Active MAGNESIUM 07/31 1230 Complete LACTIC ACID 07/31 1230 Complete D-DIMER 07/31 1230 Complete URINALYSIS 07/31 1218 Complete TROPONIN LEVEL 07/31 1218 Complete PARTIAL THROMBOPLASTIN TIME 07/31 1218 Complete PROTHROMBIN TIME 07/31 1218 Complete COMPREHENSIVE METABOLIC PANEL 07/31 1218 Complete CBC WITHOUT DIFFERENTIAL 07/31 1218 Complete Laboratory Tests 07/31/17 1829: Lactic Acid Cancelled 07/31/17 1645: Urine Color YEL, Urine Clarity HAZY H, Urine pH 6.0, Ur Specific [place] 1.020, Urine Protein NEG, Urine Ketones NEG, Urine Nitrite NEG, Urine Bilirubin NEG, Urine Urobilinogen 0.2, Ur Leukocyte Esterase SMALL H, Ur Microscopic SEDIMENT EXAMINED, Urine RBC 25-50 H, Urine WBC 1-3 H, Ur Epithelial Cells RARE, Urine Mucus RARE, Urine Hemoglobin LARGE H, Urine Glucose NEG 07/31/17 1529: Lactic Acid Cancelled 07/31/17 1353: Anion Gap 15, Estimated GFR 12 L, BUN/Creatinine Ratio 26.3 H, Glucose 128 H, Lactic Acid 3.2 H, Calcium 7.6 L, Magnesium 2.9 H, Total Bilirubin 0.7, AST 88 H, ALT 186 H, Alkaline Phosphatase 69, Troponin I 0.13 *H, Total Protein 5.0 L, Albumin 2.6 L, Globulin 2.4, Albumin/Globulin Ratio 1.1 07/31/17 1230: PT 13.1 H, INR 1.20 H, APTT 25, D-Dimer High Sensitivty 64674 H, CBC w Diff MAN DIFF ORDERED, RBC 4.89, MCV 91.0, MCH 30.9, MCHC 33.9, RDW 13.4, MPV 8.2, Gran % 91.7 H, Lymphocytes % 4.5 L, Monocytes % 3.8, Eosinophils % 0, Basophils % 0, Absolute Granulocytes 11.8 H, Segmented Neutrophils 67, Band Neutrophils 24 H, Absolute Lymphocytes 0.6 L, Lymphocytes 6 L, Monocytes 2, Absolute Monocytes 0.5, Eosinophils 1, Absolute Eosinophils 0, Absolute Basophils 0, Nucleated RBCs 1 H, Platelet Estimate DECREASED, Normocytic RBCs VERIFIED, Normochromic RBCs VERIFIED Microbiology 07/31 1750 NASOPHARYN: Influenza Virus A & B Rapid Smear - COMP 07/31 1645 URINE ROUT: Urine Culture - RECD 07/31 1353 BLOOD: Blood Culture - RECD 07/31 1310 BLOOD: Blood Culture - RECD 07/31 1302 STOOL: Clostridium difficile Toxin A & B - CAN Cancelled: NO SPECIMEN RECEIVED, PATIENT DEPARTED ER 07/31 1249 URINE ROUT: Urine Culture - CAN Cancelled: NO SPECIMEN RECEIVED, PATIENT DEPARTED ER Patient seen and evaluated. On initial evaluation patient was mildly hypotensive 90s over 50s. Fluid boluses ordered patient responded well and is now on the low 100s over 50s. He is mentating is alert and oriented 3. There is diffuse crackles auscultated bilaterally. With history of fever and altered mental status with hypotension suspect sepsis or septic shock. Cultures of the urine and blood were ordered patient be started on broad-spectrum antibiotics CT scans of the head chest and pelvis obtained. Additionally patient was hypoxic on room air to 90%. He usually does not require oxygen he has no history of COPD. He was started on 3 L nasal cannula which was increased to 4 L and is satting in the 90s. A d-dimer was obtained due to recent trauma and hypoxia which is very elevated at 44,000. Bilateral lower extremity ultrasounds ordered. Case discussed with Dr. Amara Maloney evaluated the patient he agrees the plan so far. Patient had blood work done this morning which showed evidence of acute kidney injury and hyperkalemia this is being repeated today. Repeat blood work shows elevated BUN and creatinine BUN is 121 creatinine is 4 he has a 3.2 lactic acid and a troponin of 0.13. CT scan showed multifocal pneumonia and low-grade small bowel obstruction versus ileus. Additionally there is evidence of bilateral hydronephrosis and a distended urinary bladder. Haley catheter placed. Aspirin ordered. Cardiology and surgery were consult. Spoke with cardiology regarding mildly elevated troponin and they are aware and will consult no specific recommendations. Dr. Maloney spoke with Dr. Schmidt or also consult regarding the small bowel obstruction. Patient's blood pressure remained stable he is still mentating well. PT WILL BE ADMITTED TO THE ICU BY dR [facility]. Diagnostic Imaging: Viewed by Me: Radiology Read. Discussed w/RAD: Radiology Read. Radiology Impression: PATIENT: RODRIGO SIEGEL PRESENT AGE : 89 PATIENT ACCOUNT NO: [id number] : [birth year] LOCATION: [facility] ORDERING PHYSICIAN: Nj MEDEIROS SERVICE DATE: 07/31/17 EXAM TYPE: CAT - CT ABD & PELVIS W/O IV CONTRAS; CT CHEST WO IV CONTRAST EXAMINATION: CT CHEST, ABDOMEN AND PELVIS WITHOUT CONTRAST. CLINICAL INFORMATION: Pneumonia. CHF. Symptoms of crackles, altered mental status, and hypoxia. COMPARISON: CT of the abdomen and pelvis 06/09/2016. TECHNIQUE: Multidetector volumetric imaging was performed from the thoracic inlet through the pubic symphysis without contrast. Multiplanar reformats were rendered and reviewed. Total exam dose-length product 445 mGy-cm FINDINGS: CHEST LUNG: The central airways are patent. There are multifocal airspace opacities predominantly involving the right upper lobe, right middle lobe, and both lower lobes. There is no pleural effusion or pneumothorax. MEDIASTINUM: There is no mediastinal adenopathy. There are postoperative changes of median sternotomy and coronary artery bypass grafting. There are atheromatous calcifications in the aorta, great vessels, and coronary arteries. CHEST WALL/AXILLA: Unremarkable. ABDOMEN: LIVER, GALLBLADDER, AND BILIARY TREE: There is a 2.1 cm cyst in the right hepatic lobe near the dome. Otherwise no focal hepatic mass is seen. There are numerous gallstones within the gallbladder lumen. There are no pericholecystic inflammatory changes to suggest acute cholecystitis. PANCREAS: Normal; no mass or surrounding fluid. SPLEEN: Normal size. No focal lesion. ADRENAL GLANDS: Normal; no mass. KIDNEYS AND URETERS: There is mild bilateral hydroureteronephrosis. There is no nephrolithiasis or perinephric inflammatory stranding. No renal masses seen. GASTROINTESTINAL TRACT: There is formed stool within the colon. There is mild colonic diverticulosis without focal inflammatory change. The base of the cecum appears normal. The appendix is not definitively identified however no inflammatory changes are seen in the right lower quadrant. The terminal ileum appears normal. The stomach is distended with fluid and air. The small bowel is diffusely distended with fluid and liquid stool. There is no evidence of ascites. There is no free air. ABDOMINAL WALL: No significant hernia is appreciated. LYMPHOVASCULAR STRUCTURES: Atheromatous changes in the abdominal aorta and its branch vessels. PELVIS: BLADDER: Markedly distended bladder extending into the lower abdomen. PELVIC VISCERA: Prostate is mildly enlarged and indents the base of the bladder. FREE FLUID: None identified. OSSEOUS STRUCTURES INCLUDING THE THORACIC AND LUMBAR SPINE: Multilevel spondylotic changes throughout the thoracic and lumbar spine. There is grade 1 anterolisthesis of L5 on S1. No acute or destructive lesions are seen. IMPRESSION: 1. Multifocal consolidation throughout the lungs compatible with multifocal pneumonia. No pleural effusion or pneumothorax. 2. Distended fluid and air filled loops of small bowel without definite transition point. Findings likely reflect ileus or low-grade small bowel obstruction. No ascites or free air is seen. Normal appearance of the colon. The appendix was not definitively identified however there is no inflammatory stranding in the right lower quadrant base of the cecum. 3. Bilateral hydroureteronephrosis. No obstructing lesion is seen within either collecting system. The urinary bladder is markedly distended. Urinary bladder catheterization should be considered. 4. Cholelithiasis without cholecystitis. DICTATED BY: Evita Roberts MD DATE/TIME DICTATED:07/31/171346 PATTERN HANGER:WHITE DATE/TIME TRANSCRIBED:1346 CONFIDENTIAL, DO NOT COPY WITHOUT APPROPRIATE AUTHORIZATION. Initial ED EKG: normal sinus rhythm, LBBB, 1ST DEGREE AV BLOCK (Vito MEDEIROS,Nj) Diagnostic Imaging: Discussed w/RAD: CT Scan. Radiology Impression: PATIENT: RODRIGO SIEGEL PRESENT AGE : 89 PATIENT ACCOUNT NO: [id number] : [birth year] LOCATION: [facility] ORDERING PHYSICIAN: Nj MEDEIROS SERVICE DATE: 07/31/17 EXAM TYPE: CAT - CT HEAD WO IV CONTRAST EXAMINATION: CT HEAD WITHOUT CONTRAST CLINICAL INFORMATION: Altered mental status. Hypotension. COMPARISON: Brain MRI 07/23/2017. TECHNIQUE: Contiguous axial imaging was performed from the skull base to vertex without intravenous administration of contrast. DLP: 701 mGy-cm. FINDINGS: There is no intracranial hemorrhage, large infarction, or mass lesion. There is no extra- axial collection. There are chronic appearing lacunar infarcts within the bilateral basal ganglia, bilateral thalami, left centrum semiovale, and right cerebellum. There is mild diffuse brain parenchymal volume loss with prominence of the ventricles and sulci. There is no evidence of hydrocephalus. There is mild scattered hypoattenuation in the bilateral cerebral white matter, which is nonspecific but likely reflects small vessel disease. The paranasal sinuses are clear. The mastoids and middle ear cavities are clear. IMPRESSION: 1. No intracranial hemorrhage, large infarction, mass lesion or hydrocephalus. 2. Chronic appearing lacunar infarcts in the bilateral basal ganglia, thalami, left centrum semiovale, and right cerebellum. DICTATED BY: Evita Roberts MD DATE/ TIME DICTATED:07/31/171328 PATTERN HANGER:WHITE DATE/TIME TRANSCRIBED: 07/31/171328 CONFIDENTIAL, DO NOT COPY WITHOUT APPROPRIATE AUTHORIZATION. < Electronically signed in Other Vendor System> SIGNED BY: Evita Roberts MD 07/31/17 1335 CXR Impression: PATIENT: RODRIGO SIEGEL PRESENT AGE: 89 PATIENT ACCOUNT NO: [id number] : [birth year] LOCATION: [facility] ORDERING PHYSICIAN: Nj MEDEIROS SERVICE DATE: 07/31/17-1244 EXAM TYPE: RAD - XRY-PORTABLE CHEST XRAY EXAMINATION: XR PORTABLE CHEST CLINICAL INFORMATION: Crackles. Fever. Hypotension. COMPARISON: Chest radiograph 07/22/2017. TECHNIQUE: Portable frontal view of the chest was obtained. FINDINGS: There are low lung volumes. There are patchy airspace opacities bilaterally. There is no significant pleural fluid or pneumothorax. The stomach is distended with air. There are postoperative changes related to median sternotomy. There are atheromatous calcifications in the aorta. IMPRESSION: Patchy airspace opacities bilaterally compatible with infectious/inflammatory process. DICTATED BY: Evita Roberts MD DATE/TIME DICTATED:07/31/171322 PATTERN HANGER:LUISA DATE/TIME TRANSCRIBED:07/31/171322 CONFIDENTIAL, DO NOT COPY WITHOUT APPROPRIATE AUTHORIZATION. <Electronically signed in Other Vendor System> SIGNED BY: Evita Roberts MD 07/31/17 1328 Comments: 07/31/2017 12:45:35 PM I've personally evaluated this patient and agree with the [facility] assessment and plan. I have now personally assumed care of this patient. 07/31/2017 1:25:43 PM patient's blood pressure has normalized with IV fluids. He is on a nasal cannula at 4 L/m with a 91% oxygen saturation. Auscultation of lungs reveals mild left sided crackles but no clinical congestive heart failure/ pulmonary edema. This will be observed for improvement as patient's blood pressure stabilizes. Waiting chest CAT scan to rule out pneumonia. 07/31/2017 3:03:04 PM patient's case including CAT scan report discussed with Dr. Schmidt. He will evaluate patient in the emergency department. He suspects that the gastrointestinal findings likely represent a reaction to his pneumonia. 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 (Amara MERINO,Mann Krause) ED Sepsis Exam Date of Focused Sepsis Exam: 07/31/17 Time of Focused Sepsis Exam: 1452 Sepsis Cardiac Exam: Regular Rate/Rhythm Sepsis Resp Exam: Rales Sepsis Cap Refill Exam: <2 Sec Sepsis Peripheral Pulse Exam: Normal Sepsis Peripheral Pulse Location: Radial Sepsis Skin Color Exam: Normal for Ethnicity Skin Temp/Moisture Exam: Warm/Dry (Nj Penaloza) Departure Departure Disposition: STILL A PATIENT Condition: Stable Clinical Impression Primary Impression: Sepsis Qualifiers: Sepsis type: sepsis due to unspecified organism Qualified Code: A41.9 - Sepsis, unspecified organism Secondary Impressions: Acute kidney injury, Bandemia, Hyperkalemia, Lactic acidosis, Multifocal pneumonia Referrals: Manjit MERINO,Rodrigo Mcleod (PCP/Family) Departure Forms: Customer Survey General Discharge Information (Nj Penaloza) Critical Care Note Critical Care Note Critical Care Time: 75-104 min (Nj Penaloza) Critical Care Note Comments: 07/31/17 The patient was signed out to me by Dr. Maloney at 3 PM. He is an 89-year-old male who presented with difficulty breathing. He was borderline hypotensive in the emergency department. Hypoxic, however responding to oxygen. Lower extremity ultrasound revealed bilateral DVTs. His rectal exam was guaiac positive grossly by the WALDEMAR. He had an elevated troponin, acute kidney injury, substantially elevated d-dimer, multifocal pneumonia; concern for pulmonary embolism. Because of the complexity of his medical condition, the possible need for semi-emergent vena caval filter he was transferred to [place] ICU, accepted by Dr. Johnson. (Mann Ashford DO
[2017-07-31 12:49] LABS: ABSOLUTE BASOPHIL COUNT 0 /CUMM (0.0-0.2); ABSOLUTE EOSINOPHIL COUNT 0 /CUMM (0.0-0.7); ABSOLUTE GRANULOCYTE CT 11.8 /CUMM (1.4-6.5); ABSOLUTE LYMPH COUNT 0.6 /CUMM (1.2-3.4); ABSOLUTE MONOCYTE COUNT 0.5 /CUMM (0.10-0.60); BASOPHIL % 0 % (0.0-2.0); EOSINOPHIL % 0 % (0-5); GRANULOCYTE % 91.7 % (42.2-75.2); HEMATOCRIT 44.5 % (42-52); MEAN CORPUSCULAR HGB 30.9 PG (27.0-31.0); MEAN CORPUSCULAR HGB CONC 33.9 G/DL (33.0-37.0); MEAN PLATELET VOLUME 8.2 FL (7.4-10.4); PLATELET COUNT 144 /CUMM (130-400); RBC DISTRIBUTION WIDTH 13.4 % (11.5-14.5); RED BLOOD CELL CT 4.89 /CUMM (4.70-6.10); WHITE BLOOD CELL COUNT 12.9 /CUMM (4.8-10.8)
[2017-07-31 13:05] LABS: PT 13.1 SEC (9.4-12.5); PTT 25 SEC (25-37)
--- NOTE | 2017-07-31 13:28 | RADIOLOGY REPORT ---
EXAMINATION: XR PORTABLE CHEST CLINICAL INFORMATION: Crackles. Fever. Hypotension. COMPARISON: Chest radiograph 07/22/2017. TECHNIQUE: Portable frontal view of the chest was obtained. FINDINGS: There are low lung volumes. There are patchy airspace opacities bilaterally. There is no significant pleural fluid or pneumothorax. The stomach is distended with air. There are postoperative changes related to median sternotomy. There are atheromatous calcifications in the aorta. IMPRESSION: Patchy airspace opacities bilaterally compatible with infectious/inflammatory process.
--- NOTE | 2017-07-31 13:35 | CT SCAN REPORT ---
EXAMINATION: CT HEAD WITHOUT CONTRAST CLINICAL INFORMATION: Altered mental status. Hypotension. COMPARISON: Brain MRI 07/23/2017. TECHNIQUE: Contiguous axial imaging was performed from the skull base to vertex without intravenous administration of contrast. DLP: 701 mGy-cm. FINDINGS: There is no intracranial hemorrhage, large infarction, or mass lesion. There is no extra-axial collection. There are chronic appearing lacunar infarcts within the bilateral basal ganglia, bilateral thalami, left centrum semiovale, and right cerebellum. There is mild diffuse brain parenchymal volume loss with prominence of the ventricles and sulci. There is no evidence of hydrocephalus. There is mild scattered hypoattenuation in the bilateral cerebral white matter, which is nonspecific but likely reflects small vessel disease. The paranasal sinuses are clear. The mastoids and middle ear cavities are clear. IMPRESSION: 1. No intracranial hemorrhage, large infarction, mass lesion or hydrocephalus. 2. Chronic appearing lacunar infarcts in the bilateral basal ganglia, thalami, left centrum semiovale, and right cerebellum.
--- NOTE | 2017-07-31 14:06 | CT SCAN REPORT ---
EXAMINATION: CT CHEST, ABDOMEN AND PELVIS WITHOUT CONTRAST. CLINICAL INFORMATION: Pneumonia. CHF. Symptoms of crackles, altered mental status, and hypoxia. COMPARISON: CT of the abdomen and pelvis 06/09/2016. TECHNIQUE: Multidetector volumetric imaging was performed from the thoracic inlet through the pubic symphysis without contrast. Multiplanar reformats were rendered and reviewed. Total exam dose-length product 445 mGy-cm FINDINGS: CHEST LUNG: The central airways are patent. There are multifocal airspace opacities predominantly involving the right upper lobe, right middle lobe, and both lower lobes. There is no pleural effusion or pneumothorax. MEDIASTINUM: There is no mediastinal adenopathy. There are postoperative changes of median sternotomy and coronary artery bypass grafting. There are atheromatous calcifications in the aorta, great vessels, and coronary arteries. CHEST WALL/AXILLA: Unremarkable. ABDOMEN: LIVER, GALLBLADDER, AND BILIARY TREE: There is a 2.1 cm cyst in the right hepatic lobe near the dome. Otherwise no focal hepatic mass is seen. There are numerous gallstones within the gallbladder lumen. There are no pericholecystic inflammatory changes to suggest acute cholecystitis. PANCREAS: Normal; no mass or surrounding fluid. SPLEEN: Normal size. No focal lesion. ADRENAL GLANDS: Normal; no mass. KIDNEYS AND URETERS: There is mild bilateral hydroureteronephrosis. There is no nephrolithiasis or perinephric inflammatory stranding. No renal masses seen. GASTROINTESTINAL TRACT: There is formed stool within the colon. There is mild colonic diverticulosis without focal inflammatory change. The base of the cecum appears normal. The appendix is not definitively identified however no inflammatory changes are seen in the right lower quadrant. The terminal ileum appears normal. The stomach is distended with fluid and air. The small bowel is diffusely distended with fluid and liquid stool. There is no evidence of ascites. There is no free air. ABDOMINAL WALL: No significant hernia is appreciated. LYMPHOVASCULAR STRUCTURES: Atheromatous changes in the abdominal aorta and its branch vessels. PELVIS: BLADDER: Markedly distended bladder extending into the lower abdomen. PELVIC VISCERA: Prostate is mildly enlarged and indents the base of the bladder. FREE FLUID: None identified. OSSEOUS STRUCTURES INCLUDING THE THORACIC AND LUMBAR SPINE: Multilevel spondylotic changes throughout the thoracic and lumbar spine. There is grade 1 anterolisthesis of L5 on S1. No acute or destructive lesions are seen. IMPRESSION: 1. Multifocal consolidation throughout the lungs compatible with multifocal pneumonia. No pleural effusion or pneumothorax. 2. Distended fluid and air filled loops of small bowel without definite transition point. Findings likely reflect ileus or low-grade small bowel obstruction. No ascites or free air is seen. Normal appearance of the colon. The appendix was not definitively identified however there is no inflammatory stranding in the right lower quadrant base of the cecum. 3. Bilateral hydroureteronephrosis. No obstructing lesion is seen within either collecting system. The urinary bladder is markedly distended. Urinary bladder catheterization should be considered. 4. Cholelithiasis without cholecystitis.
[2017-07-31 16:36] VITALS: BP 109/58
--- NOTE | 2017-07-31 16:39 | ULTRASOUND REPORT ---
EXAMINATION: US TRIPLEX OF LOWER EXTREMITIES, BILATERAL CLINICAL INFORMATION: Bilateral lower extremity edema. COMPARISON: None TECHNIQUE: Color-flow triplex imaging with spectral analysis and compression Doppler were performed on the lower extremities. FINDINGS: Nonocclusive thrombus is noted within the right common femoral vein. The remainder of the right lower extremity deep venous tree appear widely patent. Nonocclusive thrombus is noted within the left external iliac, left common femoral veins and also within the left greater saphenous vein. The remainder of the left lower extremity deep venous tree appear widely patent. There is no Medina's cyst. IMPRESSION: Bilateral lower extremity deep venous thrombosis. This critical result was discussed with WALDEMAR Magallon at 4:35 PM on 07/31/2017 and it was ascertained that the content and urgency of the report was understood at the time of direct communication.
--- NOTE | 2017-08-01 09:35 | Cons- CRCU ---
General Information and HPI Consulting Request Date of Consult: 07/31/17 Requested By: Dr. Briseno Reason for Consult: bilateral DVT, concern for pulmonary emboli, likely submassive, kidney failure, possible obstruction, hemoccult positive Source of Information: patient, family, old records Exam Limitations: clinical condition History of Present Illness: 89 year old man. Critical Care consultation given multiple comorbodities and bilateral DVTs. Patient recently was admitted at [facility] from [facility] for dyspnea and confusion. Initial vitals per the chart show that EMS had 70 systolic BMP. History of CAD, HLD, HTN, OA, CABG history. Fluid boluses were administered in the ED and the BP remained in high 90's, low 100's. RA o2 sat was 90%. D-dimer 17644. Bilateral LE dopplers showed bilateral DVT's. CT showed multifocal consolidation in the chest. Abdominal findings with findings of ileus or a low grade small bowel obstruction. Creatinine is elevated and CTA was unable to be performed. Family at bedside. Patient is awake, however slightly confused, some mild conversational dyspnea. +leg edema, +dyspnea. No BREWER, no hemoptysis, no syncope, no n/v/d/c. Allergies/Medications Allergies: Coded Allergies: No Known Allergies (06/09/16) Home Med List: Amlodipine Besylate (Norvasc) 10 MG TABLET 1 TAB PO DAILY BP (Reported) Aspirin (Ecotrin*) 81 MG TABLET.DR 1 TAB PO DAILY HEART/BLOOD (Reported) Atorvastatin Calcium 40 MG TABLET 1 TAB PO DAILY CHOLESTEROL (Reported) Cyanocobalamin (Vitamin B-12) 1,000 MCG TABLET 1 TAB PO DAILY VITAMIN SUPPORT (Reported) Gabapentin 100 MG CAPSULE 100 MG PO Q8H pain Lisinopril 2.5 MG TABLET 1 TAB PO DAILY BP (Reported) Polyethylene Glycol 3350 (Miralax) 17 GRAM/DOSE POWDER 17 GM PO DAILY PRN CONSTIPATION Prednisone 10 MG TABLET 3 TAB PO DAILY STEROID (Reported) Sennosides (Senna) 8.6 MG TABLET 2 TAB PO QPM CONSTIPATION (Reported) Sennosides/Docusate Sodium (Senna Plus Tablet) 8.6 MG-50 MG TABLET 2 TAB PO DAILY PRN CONSTIPATION Current Medications: Current Medications Sig/Dmitry Start time Last Medication Dose Route Stop Time Status Admin Aspirin 0 .STK-MED ONE 07/31 1546 DC PO Aspirin 325 MG ONCE ONE 07/31 1500 DC 07/31 PO 07/31 1501 1540 Ceftazidime 0 .STK-MED ONE 07/31 1506 DC .ROUTE Ceftazidime 1,000 MG ONCE ONE 07/31 1300 DC 07/31 IV 07/31 1301 1452 Ondansetron HCl 0 .STK-MED ONE 07/31 1506 DC .ROUTE Ondansetron HCl 4 MG ONCE ONE 07/31 1445 DC 07/31 IV 07/31 1446 1515 Sodium Chloride 1,000 ML BOLUS ONE 07/31 1300 DC 07/31 IV 07/31 1359 1330 Sodium Chloride 1,000 ML BOLUS ONE 07/31 1245 DC 07/31 IV 07/31 1344 1245 Vancomycin HCl 0 .STK-MED ONE 07/31 1506 DC .ROUTE Vancomycin HCl 1,000 MG ONCE ONE 07/31 1300 DC 07/31 Dextrose/Water 250 ML IV 07/31 1359 1515 Review of Systems Comments see HPI 18 pt ROS is somewhat limited given confusion. Past History Travel History Traveled to [place] past 21 day No Medical History Neurological: NONE EENT: NONE Cardiovascular: CAD, hypertension, hyperlipidemia, CABG Respiratory: NONE Gastrointestinal: constipation Hepatic: NONE Renal: nephrolithiasis Musculoskeletal: osteoarthritis Psychiatric: NONE Endocrine: NONE Blood Disorders: NONE Cancer(s): NONE GROOMING ASSISTANT/Reproductive: NONE Surgical History Surgical History: CABG x 5, appendectomy Family History Relations & Conditions If Any: Relation not specified for: *No pertinent family history Psychosocial History Who Do You Live With? spouse Functional Ability Ambulation: cane, walker Exam & Diagnostic Data Last 24 Hrs of Vital Signs/I&O Vital Signs Date Time Temp Pulse Resp B/P B/P Pulse O2 O2 Flow FiO2 Mean Ox Delivery Rate 07/31 1636 97.6 85 24 109/58 92 Nasal 4.0L Cannula 07/31 1330 88 110/62 07/31 1245 80 95/44 Intake & Output 08/01 1600 08/01 0800 08/01 0000 Intake Total Output Total 1500 Balance -1500 Output, Urine 1500 Physical Exam Other Physical Findings: gen awake, mild distress heent nasal cannula cvs s1, s2 lungs diminished at bases abd soft, bs diminished ext + edema Last 48 Hrs of Labs/Archie: Laboratory Tests 07/31/17 1829: Lactic Acid Cancelled 07/31/17 1645: Urine Color YEL, Urine Clarity HAZY H, Urine pH 6.0, Ur Specific [place] 1.020, Urine Protein NEG, Urine Ketones NEG, Urine Nitrite NEG, Urine Bilirubin NEG, Urine Urobilinogen 0.2, Ur Leukocyte Esterase SMALL H, Ur Microscopic SEDIMENT EXAMINED, Urine RBC 25-50 H, Urine WBC 1-3 H, Ur Epithelial Cells RARE, Urine Mucus RARE, Urine Hemoglobin LARGE H, Urine Glucose NEG 07/31/17 1529: Lactic Acid Cancelled 07/31/17 1353: Anion Gap 15, Estimated GFR 12 L, BUN/Creatinine Ratio 26.3 H, Glucose 128 H, Lactic Acid 3.2 H, Calcium 7.6 L, Magnesium 2.9 H, Total Bilirubin 0.7, AST 88 H, ALT 186 H, Alkaline Phosphatase 69, Troponin I 0.13 *H, Total Protein 5.0 L, Albumin 2.6 L, Globulin 2.4, Albumin/Globulin Ratio 1.1 07/31/17 1230: PT 13.1 H, INR 1.20 H, APTT 25, D-Dimer High Sensitivty 52889 H, CBC w Diff MAN DIFF ORDERED, RBC 4.89, MCV 91.0, MCH 30.9, MCHC 33.9, RDW 13.4, MPV 8.2, Gran % 91.7 H, Lymphocytes % 4.5 L, Monocytes % 3.8, Eosinophils % 0, Basophils % 0, Absolute Granulocytes 11.8 H, Segmented Neutrophils 67, Band Neutrophils 24 H, Absolute Lymphocytes 0.6 L, Lymphocytes 6 L, Monocytes 2, Absolute Monocytes 0.5, Eosinophils 1, Absolute Eosinophils 0, Absolute Basophils 0, Nucleated RBCs 1 H, Platelet Estimate DECREASED, Normocytic RBCs VERIFIED, Normochromic RBCs VERIFIED Microbiology 07/31 1750 NASOPHARYN: Influenza Virus A & B Rapid Smear - COMP Assessment/Plan CRCU Impression/Plan: Impression 89 year old man. Critical Care consultation given multiple comorbodities and bilateral DVTs. Patient recently was admitted at [facility] from [facility] for dyspnea and confusion. Initial vitals per the chart show that EMS had 70 systolic BMP. History of CAD, HLD, HTN, OA, CABG history. Fluid boluses were administered in the ED and the BP remained in high 90's, low 100's. RA o2 sat was 90%. D-dimer 25814. Bilateral LE dopplers showed bilateral DVT's. CT showed multifocal consolidation in the chest. Abdominal findings with findings of ileus or a low grade small bowel obstruction. Creatinine is elevated and CTA was unable to be performed. Family at bedside. Patient is awake, however slightly confused, some mild conversational dyspnea. +leg edema, +dyspnea. No BREWER, no hemoptysis, no syncope, no n/v/d/c. * Bilateral DVTs, very likely PE * NEHEMIAS * possible bowel obstruction * hemoccult positive Plan -given the significant comorbidities would benefit from a higher level of care -transfer will be arranged by the ED -a critical care, vascular surgery, surgery and cardiology consultations should be obtained at the facility CTA will not be pursued given creatinine. Anticoagulation are potentially a problem given hemoccult positive stool. An IVC filter maybe required. Patient has been accepted and this was discussed in detail with patient and the family. TTS 55 min Consult Acknowledgment - Thank you for your consult request.
== END 2017-07-31 18:13 | disposition short-term general hospital (02) ==
LOC: ERH 12:06
PROVIDERS: Physician Assistant Medical
DX: A41.9 Sepsis, unspecified organism (principal); N17.9 Acute kidney failure, unspecified; D72.825 Bandemia; E87.5 Hyperkalemia; E87.2 Acidosis; J18.9 Pneumonia, unspecified organism; I82.403 Acute embolism and thrombosis of unspecified deep veins of lower extremity, bilateral
CPT/HCPCS: 71045; 74176; 81001; 87040; 87086; 87804; 87804-59; 93005; 93010; 93970; 96374; 96375; 99291; J0713; J2405; J3370